=== PATIENT | male | born 1980 | race Caucasian/White ===

== ENCOUNTER 2017-02-12 21:16 | Emergency (ER) | payer MEDICAID ==
[2016-02-11 05:47] VITALS: BMI 48.5
[~2017-02-12 21:16] MED LIST: ATIVAN1 MG PO; CELEXA10 MG PO; CELEXA40 MG PO; COUMADIN5 MG PO; HYDROCODONE-APA1 TAB PO; KLONOPIN0.5 MG PO; OXYCONTIN10 MG PO; OXYCONTIN20 MG PO; PERCOCET 10/3251 TA1 PO
== END 2017-02-12 23:05 | disposition home or self-care (01) ==
LOC: D.ER 21:16
DX: S93.402A Sprain of unspecified ligament of left ankle, initial encounter (principal); W19.XXXA Unspecified fall, initial encounter; Y93.89 Activity, other specified; Y92.89 Other specified places as the place of occurrence of the external cause; S80.02XA Contusion of left knee, initial encounter; F17.200 Nicotine dependence, unspecified, uncomplicated

== ENCOUNTER 2017-02-14 15:55 | Emergency (ER) | payer MEDICAID ==
[2016-02-11 05:47] VITALS: BMI 48.5
== END 2017-02-14 18:53 | disposition left against medical advice (07) ==
LOC: D.ER 15:55
DX: M25.562 Pain in left knee (principal)

== ENCOUNTER → 2017-03-02 08:53 | Outpatient (CLI) | payer MEDICAID ==
[2016-02-11 05:47] VITALS: BMI 48.5
== END ==
LOC: D.MRI 08:53
DX: M25.562 Pain in left knee (principal)

== ENCOUNTER 2017-03-17 08:00 | Outpatient (CLI) | payer MEDICAID ==
[2016-02-11 05:47] VITALS: BMI 48.5
[2017-03-17] MEDS ORDERED: ULTRAM50 MG PO (10:14)
== END 2017-03-17 23:59 | disposition home or self-care (01) ==
LOC: D.PAN 08:00 → D.OPS 03-20 08:45 → EDSTATUS 03-20 11:30 → D.PAN 03-20 11:30
DX: M22.12 Recurrent subluxation of patella, left knee (principal); Z01.810 Encounter for preprocedural cardiovascular examination; Z01.811 Encounter for preprocedural respiratory examination; Z01.812 Encounter for preprocedural laboratory examination; Z53.9 Procedure and treatment not carried out, unspecified reason

== ENCOUNTER 2017-04-17 05:10 | Day surgery (SDC) | payer MEDICAID ==
[2017-04-13 14:54] LABS: APPEARANCE CLEAR (CLEAR); BILIRUBIN NEGATIVE (NEGATIVE); COLOR YELLOW (YELLOW); GLUCOSE NEGATIVE (NEGATIVE); KETONE NEGATIVE (NEGATIVE); LEUKOCYTE ESTERASE NEGATIVE (NEGATIVE); NITRITE NEGATIVE (NEGATIVE); PROTEIN NEGATIVE (NEGATIVE); SPECIFIC GRAVITY 1.005 (1.005-1.020); UROBILINOGEN NORMAL (NORMAL)
[2017-04-13 14:54] LABS: APTT 28.7 SECONDS (22.8-39.4); CALC OSMOLALITY 282 mosm/kg (275-300); CALCIUM 9.4 mg/dL (8.5-10.1); CARBON DIOXIDE 29.2 mmol/L (21.0-32.0); CHLORIDE - SERUM 105 mmol/L (98-107); CREATININE - SERUM 0.9 mg/dL (0.6-1.3); GLUCOSE 89 mg/dL (74-106); INR 0.94 (0.85-1.17); POTASSIUM - SERUM 3.9 mmol/L (3.5-5.1); PROTIME 12.4 SECONDS (11.6-15.0); SODIUM 144 mmol/L (136-145); UREA NITROGEN 4 mg/dL (7-18); eGFR NON AFRICAN AMERICAN > 90 mL/min (90-120)
[2017-04-13 15:10] LABS: BASOPHILS 0.2 % (0-2); EOSINOPHILS 3.4 % (0-7); HEMATOCRIT 41.7 % (42.0-54.0); HEMOGLOBIN 13.9 g/dL (13.5-17.5); IMMATURE GRANULOCYTES 0.3 % (0-5); LYMPHOCYTES 35.3 % (15-50); MCH 29.1 pg (26.0-34.0); MCHC 33.3 g/dL (31.0-37.0); MCV 87.2 fL (80.0-100.0); MEAN PLATELET VOLUME 9.8 fL (7.4-10.4); MONOCYTES 10.5 % (2-11); NEUTROPHILS 50.3 % (40-80); PLATELET COUNT 445 10x3/uL (130-400); RBC 4.78 10x6/uL (4.20-6.10); RDW 13.6 % (11.5-14.5); WBC 11.1 10x3/uL (4.8-10.8)
[~2017-04-17] VITALS: Ht 167.6 cm; Wt 140.6 kg
[~2017-04-17 05:10] MED LIST changes: +ABILIFY10 MG PO; +ULTRAM50 MG PO
[2017-04-17 06:07] VITALS: BP 126/4; Ht 167.6 cm; Wt 140.6 kg
[2017-04-17] MEDS ORDERED: DILAUDID4 MG PO (09:13)
--- NOTE | 2017-04-17 16:43 | NUR ---
1325 DRESSED AWAKE & ALERT. GIVEN DISCHARGE INSTRUCTIONS INCLUDING, MED REC, RX: DILAUDID 2MG, RTC APPT., & [facility] OPS D/C INSTRUCTIONS. PT VOICED UNDERSTANDING. CALL RETURNED FROM DR. MARIE'S OFFICE. STATES PT IS INELIGIBLE FOR ANOTHER WALKER. PT INFORMED. TO PRIVATE CAR PER WHEELCHAIR BY VOLUNTEER. HOME WITH FAMILY. Melissa BANGURA R.N.
== END 2017-04-17 13:25 | disposition home or self-care (01) ==
LOC: D.OPS 05:10 → D.PAN 07:30 → D.OPS 07:30 → D.PAN 11:10 → D.OPS 13:25 → D.PAN 16:45 → D.OPS 16:45
PROVIDERS: Orthopaedic Surgery
DX: M22.2X2 Patellofemoral disorders, left knee (principal); F17.200 Nicotine dependence, unspecified, uncomplicated; K21.9 Gastro-esophageal reflux disease without esophagitis; Z01.812 Encounter for preprocedural laboratory examination

== ENCOUNTER 2017-07-16 07:13 | Emergency (ER) | payer MEDICAID ==
[2017-04-17 06:07] VITALS: BMI 50.1
[~2017-07-16 07:13] MED LIST changes: +DILAUDID4 MG PO
== END 2017-07-16 08:17 | disposition home or self-care (01) ==
LOC: D.ER 07:13
DX: S89.92XA Unspecified injury of left lower leg, initial encounter (principal); W19.XXXA Unspecified fall, initial encounter; Y93.89 Activity, other specified; Y92.029 Unspecified place in mobile home as the place of occurrence of the external cause; F17.200 Nicotine dependence, unspecified, uncomplicated

== ENCOUNTER 2017-09-10 16:05 | Emergency (ER) | payer MEDICAID ==
[2017-04-17 06:07] VITALS: BMI 50.1
== END 2017-09-10 17:04 | disposition home or self-care (01) ==
LOC: D.ER 16:05
DX: M25.462 Effusion, left knee (principal); M17.12 Unilateral primary osteoarthritis, left knee; F17.200 Nicotine dependence, unspecified, uncomplicated

== ENCOUNTER 2017-11-27 18:31 | Emergency (ER) | payer MEDICAID ==
[2017-04-17 06:07] VITALS: BMI 50.1
== END 2017-11-27 23:21 | disposition home or self-care (01) ==
LOC: D.ER 18:31
DX: S93.401A Sprain of unspecified ligament of right ankle, initial encounter (principal); X58.XXXA Exposure to other specified factors, initial encounter; Y93.89 Activity, other specified; Y92.019 Unspecified place in single-family (private) house as the place of occurrence of the external cause

== ENCOUNTER 2017-12-08 18:24 | Emergency (ER) | payer MEDICAID ==
[2017-04-17 06:07] VITALS: BMI 50.1
== END 2017-12-08 21:12 | disposition home or self-care (01) ==
LOC: D.ER 18:24
DX: S83.92XA Sprain of unspecified site of left knee, initial encounter (principal); W19.XXXA Unspecified fall, initial encounter; Y93.89 Activity, other specified; Y92.019 Unspecified place in single-family (private) house as the place of occurrence of the external cause

== ENCOUNTER → 2017-12-14 15:56 | Outpatient (CLI) | payer MEDICAID ==
[2017-04-17 06:07] VITALS: BMI 50.1
[~2017-12-14 15:56] MED LIST changes: +ELIQUIS2.5 MG PO; +KLONOPIN1 MG PO
== END | disposition home or self-care (01) ==
LOC: D.LABREF 15:56
DX: M17.12 Unilateral primary osteoarthritis, left knee (principal); Z11.8 Encounter for screening for other infectious and parasitic diseases

== ENCOUNTER 2017-12-27 10:00 | Inpatient (IN) | payer MEDICAID ==
[~2017-12-27] VITALS: Ht 167.6 cm; Wt 150.0 kg
--- NOTE | ~2017-12-27 | OP ---
PATIENT NAME: RAKEL ALEJANDRA MEDICAL RECORD: [id number] :82 LOCATION:D.MS Cohen2208 ADMISSION DATE:01/01/18 SURGEON: AUDI MARIE MD DATE OF OPERATION: 01/01/2018 PREOPERATIVE DIAGNOSIS: Degenerative arthritis of the left knee. POSTOPERATIVE DIAGNOSIS: Degenerative arthritis of the left knee. PROCEDURE: Left total knee arthroplasty. SURGEON: Audi Marie MD ANESTHESIA: General. INDICATIONS: Rakel Alejandra is an unfortunate 37-year-old gentleman who has had previous total knee arthroplasty on the other side for severe early chondromalacia after multiple joint salvage attempts were made. This knee as well had arthroscopy trochleoplasty and it did gain him several years; however, eventually he had complete delamination of the medial femoral condyle and breakdown and all nonoperative treatments had failed including but not limited to cortisone therapy, physical therapy, bracing, etc. IMPLANTS USED: Anya triathlon total knee arthroplasty system press fit size 7 distal femur, size 6 tibial baseplate, size 9 tibial insert. The patella was not resurfaced. OPERATIVE SUMMARY IN DETAIL: After obtaining the appropriate preoperative orthopedic surgery consent as well as anesthetic consultation, evaluation, and clearance, the patient was brought to the operating room and placed on the operating table in supine position. After adequate general laryngeal mask airway was administered, tourniquet was placed about the patient's left upper extremity. Please note this patient is extremely large with a BMI well in excess of 55. The leg was prepped and draped in routine sterile fashion. The leg was elevated and exsanguinated, and the tourniquet was inflated to 350 mmHg. Immediately upon the incision, it seemed that the tourniquet was not working. It was then inflated to 400 mmHg and it did appear that we only achieved a venous tourniquet given to the patient's large proximal thigh. At this point, the tourniquet was deflated. The case was continued with the tourniquet down. Paramedian arthrotomy was performed. Distal femur was exposed. Soft tissue excision was done in the usual fashion. Intramedullary guide hole was created for intramedullary guided distal femoral cutting. Distal femoral cuts were then followed by complete exposure of the proximal tibia with removal of the menisci. Proximal tibia was cut using intramedullary guidance as well. After appropriate measurements were taken, hao cuts were made for a size 7 press fit distal femur. Trials were put into place corresponding to the above components. Final adjustments were made. Knee was taken through range of motion and found to be stable in all planes. Final distal femoral and proximal tibial preparations were made. The wound was copiously irrigated in pulsatile lavage fashion. Bone ends were dried for the stability, given the tourniquet was down. The tibia was put into place press fit. Polyethylene was snapped into the tray and then the femur was put in pressfit as well. Knee was taken through range of motion and found to be slightly more lax, but the finally and on the medial side for this reason, the medial collateral ligament was imbricated with FiberWire suture. The wound was again copiously irrigated, OPERATIVE REPORT [id number] RAKEL ALEJANDRA dried, and then Vitagel was put into place. Paramedian arthrotomy was closed with #2 Ethibond followed by #1 Vicryl and zipped suture for final closure. This was augmented with a Prevena as this patient is very obese. Having completed this, the patient was awakened and taken to the recovery room in stable condition. All final needle and sponge counts were correct. TRANSINT:[id number] Voice Confirmation ID: [id number] DOCUMENT ID: [id number] CYNTHIA MILLER, AUDI SELF at 1410 CC: [id number] DICTATION DATE: 01/01/18 1032 VENETIAN BLIND MAKER: 01/01/18 1304 [facility] IN [place] [id number] [place] [address]
[2017-12-27 09:35] LABS: BASOPHILS 0.2 % (0-2); EOSINOPHILS 3.3 % (0-7); HEMATOCRIT 44.8 % (42.0-54.0); HEMOGLOBIN 14.6 g/dL (13.5-17.5); IMMATURE GRANULOCYTES 0.2 % (0-5); LYMPHOCYTES 27.6 % (15-50); MCH 28.7 pg (26.0-34.0); MCHC 32.6 g/dL (31.0-37.0); MCV 88.2 fL (80.0-100.0); MEAN PLATELET VOLUME 9.7 fL (7.4-10.4); MONOCYTES 7.6 % (2-11); NEUTROPHILS 61.1 % (40-80); PLATELET COUNT 449 10x3/uL (130-400); RBC 5.08 10x6/uL (4.20-6.10); RDW 13.4 % (11.5-14.5); WBC 12.5 10x3/uL (4.8-10.8)
[2017-12-27 09:41] LABS: APPEARANCE CLEAR (CLEAR); BILIRUBIN NEGATIVE (NEGATIVE); COLOR YELLOW (YELLOW); GLUCOSE NEGATIVE (NEGATIVE); KETONE NEGATIVE (NEGATIVE); NITRITE NEGATIVE (NEGATIVE); PROTEIN NEGATIVE (NEGATIVE); UROBILINOGEN NORMAL (NORMAL)
[2017-12-27 09:43] LABS: CALC OSMOLALITY 281 mosm/kg (275-300); CARBON DIOXIDE 29.8 mmol/L (21.0-32.0); CHLORIDE - SERUM 105 mmol/L (98-107); GLUCOSE 90 mg/dL (74-106); POTASSIUM - SERUM 3.7 mmol/L (3.5-5.1); SODIUM 142 mmol/L (136-145); UREA NITROGEN 10 mg/dL (7-18); eGFR NON AFRICAN AMERICAN 90 mL/min (90-120)
[~2017-12-27 10:00] MED LIST changes: -ELIQUIS2.5 MG PO; -KLONOPIN1 MG PO
[2017-12-27 10:32] LABS: APTT 30.7 SECONDS (22.8-39.4); INR 0.97 (0.85-1.17); PROTIME 12.5 SECONDS (11.6-15.0)
[2018-01-01] MEDS ORDERED: HYDROCODONE-APA1 TAB PO (05:45)
[2018-01-01 05:48] VITALS: BP 140/88; BMI 51.7
[2018-01-01 10:24] VITALS: BP 136/81
[2018-01-01 19:14] VITALS: Ht 167.6 cm; Wt 150.0 kg
[2018-01-01 21:29] VITALS: BP 119/58
[2018-01-02 00:44] VITALS: BP 124/58
[2018-01-02 04:00] VITALS: BP 118/50
[2018-01-02 04:10] LABS: HEMATOCRIT 37.1 % (42.0-54.0); HEMOGLOBIN 11.9 g/dL (13.5-17.5); MCH 28.2 pg (26.0-34.0); MCHC 32.1 g/dL (31.0-37.0); MCV 87.9 fL (80.0-100.0); MEAN PLATELET VOLUME 9.7 fL (7.4-10.4); RBC 4.22 10x6/uL (4.20-6.10); RDW 13.9 % (11.5-14.5); WBC 17.4 10x3/uL (4.8-10.8)
[2018-01-02 08:39] VITALS: BP 131/83
[2018-01-02 13:12] VITALS: BP 142/92
[2018-01-02 16:30] VITALS: BP 160/93
[2018-01-02 22:21] VITALS: BP 121/67
[2018-01-03 01:10] VITALS: BP 124/68
[2018-01-03 04:24] LABS: HEMATOCRIT 34.8 % (42.0-54.0); MCH 28.4 pg (26.0-34.0); MCHC 31.6 g/dL (31.0-37.0); MEAN PLATELET VOLUME 9.7 fL (7.4-10.4); RBC 3.87 10x6/uL (4.20-6.10); RDW 13.8 % (11.5-14.5)
[2018-01-03 04:42] LABS: MCV 89.9 fL (80.0-100.0); WBC 12.8 10x3/uL (4.8-10.8)
[2018-01-03 05:03] VITALS: BP 131/71
[2018-01-03 07:52] VITALS: BP 117/58
[2018-01-03] MEDS ORDERED: ELIQUIS2.5 MG PO (08:29)
[2018-01-03] MEDS ORDERED: PERCOCET 10/3251 TA1 PO (08:30)
== END 2018-01-03 14:16 | disposition home health service (06) | DRG 470 ==
LOC: D.MS 01-01 05:09 → D.SDCHOLD 01-01 05:09 → D.MS 01-01 10:05
PROVIDERS: Orthopaedic Surgery
PROC: 0SRD0JA Replacement of Left Knee Joint with Synthetic Substitute, Uncemented, Open Approach (ICD-10-PCS; principal; 2018-01-01 07:30)
DX: M17.12 Unilateral primary osteoarthritis, left knee (principal); Z68.43 Body mass index [BMI] 50.0-59.9, adult; E66.01 Morbid (severe) obesity due to excess calories; F17.200 Nicotine dependence, unspecified, uncomplicated

== ENCOUNTER → 2018-01-09 14:01 | Outpatient (CLI) | payer MEDICAID ==
[2018-01-01 19:14] VITALS: BMI 53.4
[~2018-01-09 14:01] MED LIST changes: +ELIQUIS2.5 MG PO; +KLONOPIN1 MG PO
== END | disposition home or self-care (01) ==
LOC: D.US 01-08 16:00
DX: R60.0 Localized edema (principal)

== ENCOUNTER 2018-01-18 15:18 | Emergency (ER) | payer MEDICAID ==
[2018-01-01 19:14] VITALS: BMI 53.4
[~2018-01-18 15:18] MED LIST changes: -KLONOPIN1 MG PO
[2018-01-18 16:30] LABS: CALC OSMOLALITY 273 mosm/kg (275-300); CALCIUM 8.5 mg/dL (8.5-10.1); CARBON DIOXIDE 30.9 mmol/L (21.0-32.0); CHLORIDE - SERUM 101 mmol/L (98-107); CREATININE - SERUM 0.8 mg/dL (0.6-1.3); GLUCOSE 94 mg/dL (74-106); POTASSIUM - SERUM 5.9 mmol/L (3.5-5.1); SODIUM 138 mmol/L (136-145); UREA NITROGEN 7 mg/dL (7-18); eGFR NON AFRICAN AMERICAN > 90 mL/min (90-120)
[2018-01-18 16:31] LABS: ALBUMIN 2.5 g/dL (3.4-5.0); ALKALINE PHOSPHATASE 127 U/L (46-116); ALT (SGPT) 42 U/L (10-68); BILIRUBIN - TOTAL 0.46 mg/dL (0.2-1.3)
[2018-01-18 16:43] LABS: BASOPHILS 0.2 % (0-2); EOSINOPHILS 1.5 % (0-7); HEMATOCRIT 36.7 % (42.0-54.0); HEMOGLOBIN 11.6 g/dL (13.5-17.5); IMMATURE GRANULOCYTES 0.6 % (0-5); LYMPHOCYTES 21.8 % (15-50); MCH 27.8 pg (26.0-34.0); MCHC 31.6 g/dL (31.0-37.0); MEAN PLATELET VOLUME 10.4 fL (7.4-10.4); MONOCYTES 11.2 % (2-11); NEUTROPHILS 64.7 % (40-80); PLATELET COUNT 412 10x3/uL (130-400); RBC 4.17 10x6/uL (4.20-6.10); RDW 13.5 % (11.5-14.5); WBC 10.8 10x3/uL (4.8-10.8)
== END 2018-01-18 18:05 | disposition home or self-care (01) ==
LOC: D.ER 15:18
PROVIDERS: Nurse Practitioner Family
DX: G89.18 Other acute postprocedural pain (principal); M25.462 Effusion, left knee

== ENCOUNTER 2018-01-19 18:39 | Inpatient (IN) | payer MEDICAID ==
[~2018-01-19] VITALS: Ht 167.6 cm; Wt 149.7 kg
--- NOTE | ~2018-01-19 | OP ---
PATIENT NAME: RAKEL ROJAS MEDICAL RECORD: [id number] :82 LOCATION:D.MS Cohen2236 ADMISSION DATE:01/19/18 SURGEON: LORIE BERMAN MD DATE OF OPERATION: 01/23/2018 ANESTHESIA: Dr. Real. SURGEON: Lorie Berman MD SEARCH MARKETING COORDINATOR: None. PREOPERATIVE DIAGNOSIS: Infected left total knee replacement. POSTOPERATIVE DIAGNOSIS: Infected left total knee replacement. PROCEDURE PERFORMED: Incision and debridement of left infected total knee with explant of implants. IMPLANTS REMOVED: Were the femoral condylar implant, the poly, and the tibial tray. The patella had not been treated with arthroplasty. Therefore, no hardware was required to be removed from it. Antibiotics were held until cultures were taken from within the knee and then 2 grams of Ancef were provided. The patient is also on standing doses of vancomycin and additional broad-spectrum antibiotics per infectious disease recommendation. A very small pise of bone came out with the tibial tray. This was insignificant. No PCL was visualized after implant removal. BLOOD LOSS: 250 mm. FINDINGS: See body of the report. COMPLICATIONS: None. PATHOLOGY: None. IMPLANTS: None were reimplanted, only explant of implants was performed today. An antibiotic cement spacer was inserted (Vanco and Tobra). DRAINS: None. TOURNIQUET TIME: 2 hours. POSTOP: Stable condition to the recovery room. Needle, sponge and instrument counts were correct. INDICATIONS FOR THE PROCEDURE: The patient is a 37-year-old male who underwent left total knee replacement with replacement of the femur and the tibia only on 01/01/2018. He was admitted to the hospital over the weekend with swelling, fever, elevated white count/CRP/ESR, a swollen knee, and erythema. A tap was performed in the ER and cultures were negative. This was a traumatic tap (bloody); therefore, cell studies such as cell count would have been a moot study to do as the fluid was filled with blood containing red blood cells and white blood cells and would have skewed the results. Gram stain was negative. Despite this, the patient's incision broke down and began to drain through two sinuses. Despite the microbiology studies being negative it was clear that a deep infection had set in OPERATIVE REPORT [id number] RAKEL ROJAS at this point and surgery was indicated. Therefore, the patient was made NPO and today he was taken to the OR for surgical intervention. PROCEDURE IN DETAIL: The patient was brought back to the operating room after a discussion of the recommended procedure. I discussed the risks, benefits, alternatives and complications as well as the initial treatment for the infection; antibiotic spacer, ID consult, probable PICC line, IV antibiotics, and eventual replantation once the infection is cleared. The patient understood that additional cultures will be taken to identify the infectious bacteria, fungus, or AFB and that sensitivities will provide appropriate antibiotic treatment for the condition. His questions were answered and informed consent was obtained. A block was placed by anesthesia in the preop area for post op pain control. The patient was brought back to the operating room, placed supine on the operative Gen. endotracheal anesthesia was provided. The left lower extremity was elevated, prepped, and draped in the usual sterile fashion after a tourniquet had been applied to the proximal left thigh. The leg was then elevated as exsanguination through an infected limb was not recommended and not appropriate. After elevating the leg for 5 minutes, the tourniquet was brought up. The leg was then placed into the knee flexion jacques and an incision was made through the prior anterior knee incision for total knee replacement. This was carried down through subcutaneous tissues down to the quads fascia/patellar tendon, the medial aspect of the knee joint capsule, and patellar tendon. The deep sutures were all removed. At this time the femoral component was removed with a combination of thin flexible osteotomes and the removal device. It was successfully moved en bloc without any loss of bone whatsoever. The tibial tray was then removed using a similar technique with flexible osteotomes and a removal device. Very little bone was removed along with this implant; insignificant (2cm x 2cm). Cultures were taken and 2 grams of Ancef was then provided by anesthesia. . Copious irrigation was carried out followed by antibiotic cement placement. Closure was then performed. The arthrotomy was closed first followed by the subcutaneous tissues. The skin was then closed with Proline. A sterile dressing was placed. The patient was awakened and extubated and brought to recovery room in stable condition. TRANSINT:[id number] Voice Confirmation ID: [id number] DOCUMENT ID: [id number] LORIE BERMAN MD at 4674 CC: [id number] DICTATION DATE: 01/23/18 182 IT COMMUNICATIONS SPECIALIST: 01/23/18 221 ADM IN [place] [id number] [place] [id number]
[2018-01-19 20:47] LABS: BASOPHILS 0.2 % (0-2); EOSINOPHILS 1.4 % (0-7); HEMATOCRIT 34.8 % (42.0-54.0); HEMOGLOBIN 11.2 g/dL (13.5-17.5); IMMATURE GRANULOCYTES 0.2 % (0-5); LYMPHOCYTES 28.6 % (15-50); MCH 27.8 pg (26.0-34.0); MCHC 32.2 g/dL (31.0-37.0); MCV 86.4 fL (80.0-100.0); MEAN PLATELET VOLUME 9.1 fL (7.4-10.4); NEUTROPHILS 59.6 % (40-80); RBC 4.03 10x6/uL (4.20-6.10); RDW 13.5 % (11.5-14.5)
[2018-01-19 20:48] LABS: PLATELET COUNT 641 10x3/uL (130-400)
[2018-01-19 21:03] LABS: ALBUMIN 2.7 g/dL (3.4-5.0); ALKALINE PHOSPHATASE 122 U/L (46-116); ALT (SGPT) 35 U/L (10-68); BILIRUBIN - TOTAL 0.27 mg/dL (0.2-1.3); CALCIUM 8.8 mg/dL (8.5-10.1); CARBON DIOXIDE 27.8 mmol/L (21.0-32.0); CHLORIDE - SERUM 101 mmol/L (98-107); CREATININE - SERUM 0.8 mg/dL (0.6-1.3); GLUCOSE 99 mg/dL (74-106); PROTEIN - SERUM 7.9 g/dL (6.4-8.2); SODIUM 138 mmol/L (136-145); eGFR NON AFRICAN AMERICAN > 90 mL/min (90-120)
[2018-01-19 21:04] LABS: CALC OSMOLALITY 272 mosm/kg (275-300); POTASSIUM - SERUM 3.5 mmol/L (3.5-5.1); UREA NITROGEN 4 mg/dL (7-18)
[2018-01-19 23:59] LABS: ERYTHROCYTE SEDIMENTATION RATE 90 mm/hr (0-15)
[2018-01-20 02:23] VITALS: BP 119/74; Ht 167.6 cm; Wt 149.7 kg
[2018-01-20 04:36] VITALS: BP 110/54
[2018-01-20 09:09] VITALS: BP 106/75
[2018-01-20 12:30] VITALS: BP 123/70
[2018-01-20 15:58] VITALS: BP 106/62
[2018-01-20] MEDS ORDERED: DILAUDID4 MG PO (18:25)
[2018-01-20 20:00] VITALS: BP 116/66
[2018-01-21] VITALS: BP 106/60
[2018-01-21 04:00] VITALS: BP 118/63
[2018-01-21 05:00] LABS: BASOPHILS 0.1 % (0-2); EOSINOPHILS 2.6 % (0-7); HEMATOCRIT 32.5 % (42.0-54.0); HEMOGLOBIN 10.3 g/dL (13.5-17.5); IMMATURE GRANULOCYTES 0.2 % (0-5); LYMPHOCYTES 29.9 % (15-50); MCH 27.2 pg (26.0-34.0); MCHC 31.7 g/dL (31.0-37.0); MEAN PLATELET VOLUME 9.1 fL (7.4-10.4); MONOCYTES 6.7 % (2-11); NEUTROPHILS 60.5 % (40-80); PLATELET COUNT 606 10x3/uL (130-400); RBC 3.78 10x6/uL (4.20-6.10); RDW 13.6 % (11.5-14.5); WBC 9.8 10x3/uL (4.8-10.8)
[2018-01-21 05:40] LABS: ALBUMIN 2.3 g/dL (3.4-5.0); ALKALINE PHOSPHATASE 114 U/L (46-116); ALT (SGPT) 31 U/L (10-68); BILIRUBIN - TOTAL 0.39 mg/dL (0.2-1.3); CALC OSMOLALITY 276 mosm/kg (275-300); CALCIUM 8.7 mg/dL (8.5-10.1); CARBON DIOXIDE 29.4 mmol/L (21.0-32.0); CHLORIDE - SERUM 103 mmol/L (98-107); CREATININE - SERUM 0.9 mg/dL (0.6-1.3); GLUCOSE 91 mg/dL (74-106); PROTEIN - SERUM 7.3 g/dL (6.4-8.2); SODIUM 140 mmol/L (136-145); UREA NITROGEN 6 mg/dL (7-18); eGFR NON AFRICAN AMERICAN > 90 mL/min (90-120)
[2018-01-21 08:57] VITALS: BP 94/56
[2018-01-21 12:22] VITALS: BP 104/56
[2018-01-21 16:39] VITALS: BP 109/57
[2018-01-21 20:00] VITALS: BP 122/71
[2018-01-22] VITALS: BP 119/65
[2018-01-22 04:00] VITALS: BP 107/63
[2018-01-22 06:12] LABS: BASOPHILS 0.1 % (0-2); EOSINOPHILS 4.4 % (0-7); HEMATOCRIT 31.8 % (42.0-54.0); HEMOGLOBIN 10.1 g/dL (13.5-17.5); IMMATURE GRANULOCYTES 0.1 % (0-5); LYMPHOCYTES 36.4 % (15-50); MCH 27.2 pg (26.0-34.0); MCHC 31.8 g/dL (31.0-37.0); MCV 85.5 fL (80.0-100.0); MONOCYTES 8.1 % (2-11); NEUTROPHILS 50.9 % (40-80); PLATELET COUNT 574 10x3/uL (130-400); RBC 3.72 10x6/uL (4.20-6.10); RDW 13.6 % (11.5-14.5); WBC 8.2 10x3/uL (4.8-10.8)
[2018-01-22 07:14] LABS: ALKALINE PHOSPHATASE 106 U/L (46-116); ALT (SGPT) 24 U/L (10-68); BILIRUBIN - TOTAL 0.27 mg/dL (0.2-1.3); CALC OSMOLALITY 275 mosm/kg (275-300); CALCIUM 8.2 mg/dL (8.5-10.1); CARBON DIOXIDE 30.2 mmol/L (21.0-32.0); CHLORIDE - SERUM 105 mmol/L (98-107); CREATININE - SERUM 0.8 mg/dL (0.6-1.3); GLUCOSE 90 mg/dL (74-106); POTASSIUM - SERUM 4.1 mmol/L (3.5-5.1); PROTEIN - SERUM 6.8 g/dL (6.4-8.2); SODIUM 139 mmol/L (136-145); UREA NITROGEN 7 mg/dL (7-18); eGFR NON AFRICAN AMERICAN > 90 mL/min (90-120)
[2018-01-22 08:27] VITALS: BP 107/73
[2018-01-22 12:29] VITALS: BP 106/70
[2018-01-22 16:48] VITALS: BP 135/84
[2018-01-22 18:30] LABS: % SATURATION 13 % (15-55); IRON 24 ug/dl (35-150); TOTAL IRON BIND CAPACITY 184 ug/dl (260-445); UNSAT IRON BIND CAPACITY 160 ug/dl (150-375)
[2018-01-22 20:00] VITALS: BP 119/77
[2018-01-23] VITALS (9 sets, daily range): BP systolic 83–126; BP diastolic 44–74
[2018-01-23 06:04] LABS: BASOPHILS 0.2 % (0-2); EOSINOPHILS 4.6 % (0-7); HEMOGLOBIN 10.4 g/dL (13.5-17.5); IMMATURE GRANULOCYTES 0.1 % (0-5); LYMPHOCYTES 34.4 % (15-50); MCH 27.1 pg (26.0-34.0); MCHC 31.5 g/dL (31.0-37.0); MCV 85.9 fL (80.0-100.0); MEAN PLATELET VOLUME 9.2 fL (7.4-10.4); MONOCYTES 6.6 % (2-11); NEUTROPHILS 54.1 % (40-80); PLATELET COUNT 663 10x3/uL (130-400); RBC 3.84 10x6/uL (4.20-6.10); RDW 13.5 % (11.5-14.5); WBC 9.5 10x3/uL (4.8-10.8)
[2018-01-23 06:33] LABS: ALBUMIN 2.2 g/dL (3.4-5.0); ALKALINE PHOSPHATASE 119 U/L (46-116); ALT (SGPT) 24 U/L (10-68); CALCIUM 8.6 mg/dL (8.5-10.1); CARBON DIOXIDE 29.3 mmol/L (21.0-32.0); CHLORIDE - SERUM 106 mmol/L (98-107); CREATININE - SERUM 0.9 mg/dL (0.6-1.3); GLUCOSE 90 mg/dL (74-106); POTASSIUM - SERUM 4.1 mmol/L (3.5-5.1); PROTEIN - SERUM 6.9 g/dL (6.4-8.2); SODIUM 141 mmol/L (136-145); eGFR NON AFRICAN AMERICAN > 90 mL/min (90-120)
[2018-01-23 06:35] LABS: CALC OSMOLALITY 279 mosm/kg (275-300); UREA NITROGEN 9 mg/dL (7-18)
[2018-01-23 16:41] LABS: BASOPHILS 0.1 % (0-2); HEMATOCRIT 30.5 % (42.0-54.0); HEMOGLOBIN 9.6 g/dL (13.5-17.5); IMMATURE GRANULOCYTES 0.3 % (0-5); LYMPHOCYTES 12.6 % (15-50); MCH 26.9 pg (26.0-34.0); MCHC 31.5 g/dL (31.0-37.0); MCV 85.4 fL (80.0-100.0); MEAN PLATELET VOLUME 9.2 fL (7.4-10.4); MONOCYTES 2.2 % (2-11); NEUTROPHILS 83.8 % (40-80); PLATELET COUNT 644 10x3/uL (130-400); RBC 3.57 10x6/uL (4.20-6.10); RDW 13.3 % (11.5-14.5)
[2018-01-23 16:47] LABS: WBC 14.1 10x3/uL (4.8-10.8)
[2018-01-24 04:00] VITALS: BP 101/68
[2018-01-24 05:34] LABS: BASOPHILS 0.1 % (0-2); EOSINOPHILS 0.1 % (0-7); HEMOGLOBIN 8.3 g/dL (13.5-17.5); IMMATURE GRANULOCYTES 0.3 % (0-5); LYMPHOCYTES 15.1 % (15-50); MCH 27.1 pg (26.0-34.0); MCHC 31.9 g/dL (31.0-37.0); MONOCYTES 6.5 % (2-11); NEUTROPHILS 77.9 % (40-80); PLATELET COUNT 625 10x3/uL (130-400); RBC 3.06 10x6/uL (4.20-6.10); RDW 13.5 % (11.5-14.5)
[2018-01-24 06:52] LABS: ALKALINE PHOSPHATASE 95 U/L (46-116); BILIRUBIN - TOTAL 0.17 mg/dL (0.2-1.3); CALCIUM 7.8 mg/dL (8.5-10.1); CARBON DIOXIDE 27.3 mmol/L (21.0-32.0); CREATININE - SERUM 1.1 mg/dL (0.6-1.3); GLUCOSE 113 mg/dL (74-106); PROTEIN - SERUM 6.1 g/dL (6.4-8.2); UREA NITROGEN 10 mg/dL (7-18); eGFR NON AFRICAN AMERICAN 81 mL/min (90-120)
[2018-01-24 06:53] LABS: ALT (SGPT) 17 U/L (10-68)
[2018-01-24 07:35] LABS: CALC OSMOLALITY 278 mosm/kg (275-300); CHLORIDE - SERUM 103 mmol/L (98-107); POTASSIUM - SERUM 4.3 mmol/L (3.5-5.1); SODIUM 140 mmol/L (136-145)
[2018-01-24 09:30] VITALS: BP 136/76
[2018-01-24 12:25] VITALS: BP 114/68
[2018-01-24 15:25] LABS: FUNGUS STAIN Final report (())
[2018-01-24 17:10] VITALS: BP 120/66
[2018-01-24 20:00] VITALS: BP 115/66
[2018-01-25] VITALS: BP 125/73
[2018-01-25 04:00] VITALS: BP 116/74
[2018-01-25 05:31] LABS: BASOPHILS 0.2 % (0-2); EOSINOPHILS 1.4 % (0-7); IMMATURE GRANULOCYTES 0.4 % (0-5); MCH 26.8 pg (26.0-34.0); MCHC 31.3 g/dL (31.0-37.0); MCV 85.5 fL (80.0-100.0); MEAN PLATELET VOLUME 9.4 fL (7.4-10.4); MONOCYTES 10.3 % (2-11); NEUTROPHILS 53.7 % (40-80); RBC 2.69 10x6/uL (4.20-6.10); RDW 13.9 % (11.5-14.5)
[2018-01-25 05:32] LABS: WBC 10.2 10x3/uL (4.8-10.8)
[2018-01-25 05:33] LABS: HEMOGLOBIN 7.2 g/dL (13.5-17.5); PLATELET COUNT 454 10x3/uL (130-400)
[2018-01-25 05:47] LABS: ALKALINE PHOSPHATASE 97 U/L (46-116); ALT (SGPT) 17 U/L (10-68); CALCIUM 7.8 mg/dL (8.5-10.1); CARBON DIOXIDE 26.4 mmol/L (21.0-32.0); CHLORIDE - SERUM 104 mmol/L (98-107); CREATININE - SERUM 0.9 mg/dL (0.6-1.3); GLUCOSE 113 mg/dL (74-106); POTASSIUM - SERUM 3.7 mmol/L (3.5-5.1); PROTEIN - SERUM 6.1 g/dL (6.4-8.2); SODIUM 138 mmol/L (136-145); eGFR NON AFRICAN AMERICAN > 90 mL/min (90-120)
[2018-01-25 05:48] LABS: CALC OSMOLALITY 274 mosm/kg (275-300); UREA NITROGEN 7 mg/dL (7-18)
[2018-01-25 08:55] VITALS: BP 127/68
[2018-01-25 12:23] VITALS: BP 134/60
[2018-01-25 16:43] VITALS: BP 138/77
[2018-01-25 21:00] VITALS: BP 102/67
[2018-01-26 01:44] VITALS: BP 131/65
[2018-01-26 05:22] VITALS: BP 126/56
[2018-01-26 06:52] LABS: BASOPHILS 0.2 % (0-2); EOSINOPHILS 3.1 % (0-7); HEMOGLOBIN 7.8 g/dL (13.5-17.5); IMMATURE GRANULOCYTES 0.4 % (0-5); MCHC 31.2 g/dL (31.0-37.0); MCV 86.5 fL (80.0-100.0); MEAN PLATELET VOLUME 9.4 fL (7.4-10.4); MONOCYTES 10.1 % (2-11); NEUTROPHILS 48.2 % (40-80); PLATELET COUNT 478 10x3/uL (130-400); RBC 2.89 10x6/uL (4.20-6.10); RDW 13.9 % (11.5-14.5); WBC 9.8 10x3/uL (4.8-10.8)
[2018-01-26 07:13] LABS: CALC OSMOLALITY 271 mosm/kg (275-300); CALCIUM 8.4 mg/dL (8.5-10.1); CARBON DIOXIDE 28.1 mmol/L (21.0-32.0); CHLORIDE - SERUM 103 mmol/L (98-107); CREATININE - SERUM 0.7 mg/dL (0.6-1.3); GLUCOSE 95 mg/dL (74-106); POTASSIUM - SERUM 4.1 mmol/L (3.5-5.1); SODIUM 137 mmol/L (136-145); UREA NITROGEN 6 mg/dL (7-18); eGFR NON AFRICAN AMERICAN > 90 mL/min (90-120)
[2018-01-26 13:10] VITALS: BP 124/73
[2018-01-26 17:11] VITALS: BP 101/64
[2018-01-26 22:50] VITALS: BP 130/60
[2018-01-27 01:20] VITALS: BP 116/52
[2018-01-27 05:24] VITALS: BP 96/52
[2018-01-27 06:37] LABS: BASOPHILS 0.1 % (0-2); EOSINOPHILS 3.7 % (0-7); HEMATOCRIT 24.4 % (42.0-54.0); HEMOGLOBIN 7.6 g/dL (13.5-17.5); IMMATURE GRANULOCYTES 0.4 % (0-5); LYMPHOCYTES 32.6 % (15-50); MCH 26.7 pg (26.0-34.0); MCHC 31.1 g/dL (31.0-37.0); MCV 85.6 fL (80.0-100.0); MEAN PLATELET VOLUME 8.9 fL (7.4-10.4); MONOCYTES 8.9 % (2-11); NEUTROPHILS 54.3 % (40-80); PLATELET COUNT 521 10x3/uL (130-400); RBC 2.85 10x6/uL (4.20-6.10); RDW 13.9 % (11.5-14.5); WBC 9.9 10x3/uL (4.8-10.8)
[2018-01-27 07:25] LABS: CALC OSMOLALITY 275 mosm/kg (275-300); CALCIUM 8.4 mg/dL (8.5-10.1); CARBON DIOXIDE 28.4 mmol/L (21.0-32.0); CHLORIDE - SERUM 103 mmol/L (98-107); CREATININE - SERUM 0.8 mg/dL (0.6-1.3); GLUCOSE 97 mg/dL (74-106); POTASSIUM - SERUM 3.7 mmol/L (3.5-5.1); SODIUM 139 mmol/L (136-145); UREA NITROGEN 7 mg/dL (7-18); eGFR NON AFRICAN AMERICAN > 90 mL/min (90-120)
[2018-01-27 08:23] VITALS: BP 104/56
[2018-01-27 12:33] VITALS: BP 110/55
[2018-01-27 16:19] VITALS: BP 108/63
[2018-01-27 22:58] VITALS: BP 117/72
[2018-01-28 05:32] VITALS: BP 114/64
[2018-01-28 06:31] LABS: CALC OSMOLALITY 276 mosm/kg (275-300); CALCIUM 8.6 mg/dL (8.5-10.1); CARBON DIOXIDE 29.5 mmol/L (21.0-32.0); CHLORIDE - SERUM 104 mmol/L (98-107); CREATININE - SERUM 0.9 mg/dL (0.6-1.3); GLUCOSE 92 mg/dL (74-106); POTASSIUM - SERUM 3.6 mmol/L (3.5-5.1); SODIUM 140 mmol/L (136-145); UREA NITROGEN 6 mg/dL (7-18); eGFR NON AFRICAN AMERICAN > 90 mL/min (90-120)
[2018-01-28 06:32] LABS: BASOPHILS 0.1 % (0-2); EOSINOPHILS 6.3 % (0-7); HEMATOCRIT 24.5 % (42.0-54.0); HEMOGLOBIN 7.6 g/dL (13.5-17.5); IMMATURE GRANULOCYTES 0.3 % (0-5); LYMPHOCYTES 30.5 % (15-50); MCH 26.6 pg (26.0-34.0); MCV 85.7 fL (80.0-100.0); MONOCYTES 9.5 % (2-11); NEUTROPHILS 53.3 % (40-80); PLATELET COUNT 554 10x3/uL (130-400); RBC 2.86 10x6/uL (4.20-6.10); RDW 13.7 % (11.5-14.5); WBC 9.7 10x3/uL (4.8-10.8)
[2018-01-28 08:16] VITALS: BP 107/65
[2018-01-28 12:25] VITALS: BP 118/62
[2018-01-28 15:55] VITALS: BP 130/60
[2018-01-28 21:56] VITALS: BP 101/47
[2018-01-29 01:39] VITALS: BP 102/53
[2018-01-29 06:34] LABS: BASOPHILS 0.1 % (0-2); EOSINOPHILS 6.9 % (0-7); HEMATOCRIT 25.3 % (42.0-54.0); HEMOGLOBIN 7.9 g/dL (13.5-17.5); IMMATURE GRANULOCYTES 0.3 % (0-5); LYMPHOCYTES 30.8 % (15-50); MCH 26.7 pg (26.0-34.0); MCHC 31.2 g/dL (31.0-37.0); MCV 85.5 fL (80.0-100.0); MEAN PLATELET VOLUME 8.7 fL (7.4-10.4); MONOCYTES 7.8 % (2-11); NEUTROPHILS 54.1 % (40-80); PLATELET COUNT 490 10x3/uL (130-400); RBC 2.96 10x6/uL (4.20-6.10); RDW 13.9 % (11.5-14.5); WBC 9.4 10x3/uL (4.8-10.8)
[2018-01-29 06:53] LABS: CALC OSMOLALITY 273 mosm/kg (275-300); CALCIUM 8.4 mg/dL (8.5-10.1); CARBON DIOXIDE 27.1 mmol/L (21.0-32.0); CHLORIDE - SERUM 103 mmol/L (98-107); CREATININE - SERUM 0.9 mg/dL (0.6-1.3); GLUCOSE 107 mg/dL (74-106); POTASSIUM - SERUM 3.7 mmol/L (3.5-5.1); SODIUM 138 mmol/L (136-145); UREA NITROGEN 7 mg/dL (7-18); eGFR NON AFRICAN AMERICAN > 90 mL/min (90-120)
[2018-01-29 09:41] VITALS: BP 113/71
[2018-01-29] MEDS ORDERED: KLONOPIN1 MG PO (11:07)
[2018-01-29] MEDS ORDERED: HYDROCODONE-APA1 TAB PO (11:09)
[2018-01-29] MEDS ORDERED: ELIQUIS2.5 MG PO (11:13)
[2018-01-29 13:12] VITALS: BP 107/67
[2018-02-19 10:12] LABS: FUNGUS MYCOLOGY CULTURE Final report (())
== END 2018-01-29 14:10 | disposition home health service (06) | DRG 464 ==
LOC: D.ER 18:39 → D.MS 23:34 → D.EDHOLD 23:34 → D.MS 23:52
PROVIDERS: Anesthesiology; Family Medicine; Internal Medicine Nephrology; Nurse Practitioner Family; Orthopaedic Surgery Foot and Ankle Surgery; Student in an Organized Health Care Education/Training Program
PROC: 0SPD0JZ Removal of Synthetic Substitute from Left Knee Joint, Open Approach (ICD-10-PCS; principal; 2018-01-23 08:30)
PROC: 0SHD08Z Insertion of Spacer into Left Knee Joint, Open Approach (ICD-10-PCS; 2018-01-23 08:30)
PROC: 02HV33Z Insertion of Infusion Device into Superior Vena Cava, Percutaneous Approach (ICD-10-PCS; 2018-01-26)
PROC: B548ZZA Ultrasonography of Superior Vena Cava, Guidance (ICD-10-PCS; 2018-01-26)
DX: T84.54XA Infection and inflammatory reaction due to internal left knee prosthesis, initial encounter (principal); Z68.43 Body mass index [BMI] 50.0-59.9, adult; T81.31XA Disruption of external operation (surgical) wound, not elsewhere classified, initial encounter; E66.01 Morbid (severe) obesity due to excess calories; F41.8 Other specified anxiety disorders; D64.9 Anemia, unspecified; R79.82 Elevated C-reactive protein (CRP); M19.90 Unspecified osteoarthritis, unspecified site

== ENCOUNTER → 2018-02-05 09:59 | Outpatient (CLI) | payer MEDICAID ==
[2018-01-20 02:23] VITALS: BMI 53.4
[~2018-02-05 09:59] MED LIST changes: +KLONOPIN1 MG PO
[2018-02-05 20:11] LABS: BASOPHILS 0.2 % (0-2); EOSINOPHILS 2.1 % (0-7); HEMATOCRIT 30.6 % (42.0-54.0); HEMOGLOBIN 9.4 g/dL (13.5-17.5); IMMATURE GRANULOCYTES 0.2 % (0-5); LYMPHOCYTES 28.8 % (15-50); MCH 26.7 pg (26.0-34.0); MCHC 30.7 g/dL (31.0-37.0); MCV 86.9 fL (80.0-100.0); MEAN PLATELET VOLUME 9.5 fL (7.4-10.4); MONOCYTES 11.4 % (2-11); NEUTROPHILS 57.3 % (40-80); PLATELET COUNT 582 10x3/uL (130-400); RBC 3.52 10x6/uL (4.20-6.10); RDW 14.7 % (11.5-14.5); WBC 10.3 10x3/uL (4.8-10.8)
[2018-02-05 20:22] LABS: ALKALINE PHOSPHATASE 142 U/L (46-116); ALT (SGPT) 46 U/L (10-68); C-REACTIVE PROTEIN 3.2 mg/dL (0.0-0.9); CALC OSMOLALITY 279 mosm/kg (275-300); CARBON DIOXIDE 25.4 mmol/L (21.0-32.0); CHLORIDE - SERUM 102 mmol/L (98-107); CREATININE - SERUM 1.1 mg/dL (0.6-1.3); POTASSIUM - SERUM 4.2 mmol/L (3.5-5.1); PROTEIN - SERUM 7.6 g/dL (6.4-8.2); SODIUM 142 mmol/L (136-145); UREA NITROGEN 10 mg/dL (7-18); eGFR NON AFRICAN AMERICAN 81 mL/min (90-120)
[2018-02-05 20:28] LABS: GLUCOSE 54 mg/dL (74-106)
[2018-02-05 21:47] LABS: ERYTHROCYTE SEDIMENTATION RATE 47 mm/hr (0-15)
== END | disposition home or self-care (01) ==
LOC: D.LABREF 09:59
PROVIDERS: Student in an Organized Health Care Education/Training Program
DX: T84.54XA Infection and inflammatory reaction due to internal left knee prosthesis, initial encounter (principal); Z51.81 Encounter for therapeutic drug level monitoring; Z79.2 Long term (current) use of antibiotics

== ENCOUNTER 2018-02-06 15:03 | Emergency (ER) | payer MEDICAID ==
[2018-01-20 02:23] VITALS: BMI 53.4
[2018-02-06 18:17] LABS: BASOPHILS 0.3 % (0-2); EOSINOPHILS 2.5 % (0-7); HEMATOCRIT 30.4 % (42.0-54.0); HEMOGLOBIN 9.4 g/dL (13.5-17.5); IMMATURE GRANULOCYTES 0.4 % (0-5); LYMPHOCYTES 28.3 % (15-50); MCHC 30.9 g/dL (31.0-37.0); MEAN PLATELET VOLUME 9.5 fL (7.4-10.4); MONOCYTES 8.6 % (2-11); NEUTROPHILS 59.9 % (40-80); PLATELET COUNT 480 10x3/uL (130-400); RBC 3.61 10x6/uL (4.20-6.10); RDW 14.4 % (11.5-14.5); WBC 11.9 10x3/uL (4.8-10.8)
[2018-02-06 18:29] LABS: INR 1.1 (0.85-1.17); PROTIME 13.8 SECONDS (11.6-15.0)
[2018-02-06 18:30] LABS: MCV 84.2 fL (80.0-100.0)
[2018-02-06 19:21] LABS: ALBUMIN 2.9 g/dL (3.4-5.0); ALKALINE PHOSPHATASE 131 U/L (46-116); ALT (SGPT) 40 U/L (10-68); CALCIUM 9.2 mg/dL (8.5-10.1); CARBON DIOXIDE 27.7 mmol/L (21.0-32.0); CHLORIDE - SERUM 103 mmol/L (98-107); CREATININE - SERUM 0.9 mg/dL (0.6-1.3); POTASSIUM - SERUM 3.7 mmol/L (3.5-5.1); PROTEIN - SERUM 7.5 g/dL (6.4-8.2); SODIUM 140 mmol/L (136-145); eGFR NON AFRICAN AMERICAN > 90 mL/min (90-120)
[2018-02-06 19:24] LABS: CALC OSMOLALITY 275 mosm/kg (275-300); GLUCOSE 87 mg/dL (74-106); UREA NITROGEN 7 mg/dL (7-18)
[2018-02-06 19:29] LABS: CREATINE KINASE 97 UL (21-232); MAGNESIUM - SERUM 2.2 mg/dL (1.8-2.4); PRO BNP 106 pg/mL (0-125)
== END 2018-02-06 20:10 | disposition home or self-care (01) ==
LOC: D.ER 15:03
PROVIDERS: Nurse Practitioner Family
DX: G89.18 Other acute postprocedural pain (principal)

== ENCOUNTER 2018-02-08 08:16 | Inpatient (IN) | payer MEDICAID ==
[~2018-02-08] VITALS: Ht 167.6 cm; Wt 145.5 kg
--- NOTE | ~2018-02-08 | OP ---
PATIENT NAME: RAKEL ALEJANDRA MEDICAL RECORD: [id number] :82 LOCATION:D.MS Cohen2226 ADMISSION DATE:02/08/18 SURGEON: AUDI MARIE MD DATE OF OPERATION: 02/11/2018 PREOPERATIVE DIAGNOSIS: Infected left knee, status post placement of a cement spacer. POSTOPERATIVE DIAGNOSIS: Infected left knee, status post placement of a cement spacer. PROCEDURES: 1. Excisional debridement of the left knee; skin, subcutaneous tissue, portions of fat, fascia, muscle, and bone, 130 cm in aggregate to include skin, subcutaneous tissue, portions of fat, fascia, muscle, and bone less than that. 2. Placement of antibiotic cement spacer. SURGEON: Audi Marie MD ANESTHESIA: General. INTRAOPERATIVE COMPLICATIONS: None. SUMMARY OF PATHOLOGIC FINDINGS: The patient's infection seemed to be more prepatellar. Cultures were taken from both planes. The prepatellar bursa and then one in the deep aspect of the joint after the cement spacer was removed. INDICATIONS: Rakel Alejandra is a 37-year-old gentleman who has had a long history of bilateral knee problems, culminating in bilateral total knee arthroplasty at separate times, the most recent of which unfortunately became infected. It was removed and a cement spacer was put in place by Dr. Berman. The patient presented to the hospital on 02/08/2018 with recurrent fever. The decision was then made after sed rate and C-reactive protein began to rise from where it had been prior. Decision was made to repeat the I&D, replace the cement spacer. The patient has a Prevena dressing and a deep drain. OPERATIVE SUMMARY IN DETAIL: After obtaining the appropriate orthopedic surgery consent as well as anesthetic consultation, evaluation and clearance, the patient was brought to the operating room and placed on the operating table in supine position. After adequate general laryngeal mask was administered, tourniquet was placed in the proximal aspect of left lower extremity. Left lower extremity was then prepped and draped in routine sterile fashion. The leg was elevated. The tourniquet was deflated without exsanguination because of the risk of infection spread. Incision was made over the preoperative incision line and taken down for paramedian arthrotomy. However, before the paramedian arthrotomy was performed, cultures were taken in the superficial prepatellar space. Paramedian arthrotomy was then performed. The previously placed cement spacer was removed. Cultures were taken from deep. Approximately 6 liters of normal saline was irrigated in pulsatile fashion. A combination of curettes and rongeurs were used for the debridement. The bone was scraped with a curette on all surfaces and final debridement was then finished. A vancomycin cement laden spacer was placed in the wound while in the doughy capacity and molded into the joint space with the knee in a proper alignment. Having completed this, a 19-[place] Hemovac drain was placed. The paramedian arthrotomy was closed with a combination of #2 Ethibond and #5 Ethibond in [id number] fashion. The OPERATIVE REPORT [id number] RAKEL ALEJANDRA superficial layer was closed with a #1 Vicryl. This was followed by 2-0 Prolene in horizontal mattress fashion. Having completed this, a Prevena was placed over the wound. The drain was hooked up to the Hemovac. Further sterile dressings were applied. Tourniquet was deflated. The patient was awakened, taken to recovery room in stable condition. All final needle and sponge counts were correct. TRANSINT:[id number] Voice Confirmation ID: [id number] DOCUMENT ID: [id number] AUDI MARIE MD at 0949 CC: [id number] DICTATION DATE: 02/11/18 1045 MANAGER POWER: 02/11/18 1155 ADM IN [facility] [address] [place] [address]
[2018-02-08 09:13] LABS: APPEARANCE CLEAR (CLEAR); BILIRUBIN NEGATIVE (NEGATIVE); COLOR YELLOW (YELLOW); GLUCOSE NEGATIVE (NEGATIVE); KETONE NEGATIVE (NEGATIVE); NITRITE NEGATIVE (NEGATIVE); PROTEIN NEGATIVE (NEGATIVE); SPECIFIC GRAVITY 1.005 (1.005-1.020); UROBILINOGEN NORMAL (NORMAL)
[2018-02-08 10:28] LABS: BASOPHILS 0.2 % (0-2); EOSINOPHILS 2.9 % (0-7); HEMATOCRIT 29.8 % (42.0-54.0); HEMOGLOBIN 9.2 g/dL (13.5-17.5); IMMATURE GRANULOCYTES 0.3 % (0-5); LYMPHOCYTES 29.6 % (15-50); MCH 25.6 pg (26.0-34.0); MCHC 30.9 g/dL (31.0-37.0); MEAN PLATELET VOLUME 9.3 fL (7.4-10.4); MONOCYTES 7.3 % (2-11); NEUTROPHILS 59.7 % (40-80); PLATELET COUNT 555 10x3/uL (130-400); RBC 3.59 10x6/uL (4.20-6.10); RDW 14.5 % (11.5-14.5); WBC 10.7 10x3/uL (4.8-10.8)
[2018-02-08 10:43] LABS: ALBUMIN 2.8 g/dL (3.4-5.0); ALKALINE PHOSPHATASE 128 U/L (46-116); ALT (SGPT) 34 U/L (10-68); BILIRUBIN - TOTAL 0.25 mg/dL (0.2-1.3); CALC OSMOLALITY 269 mosm/kg (275-300); CALCIUM 9.3 mg/dL (8.5-10.1); CARBON DIOXIDE 27.9 mmol/L (21.0-32.0); CHLORIDE - SERUM 102 mmol/L (98-107); CREATININE - SERUM 0.9 mg/dL (0.6-1.3); GLUCOSE 93 mg/dL (74-106); POTASSIUM - SERUM 3.4 mmol/L (3.5-5.1); PROTEIN - SERUM 7.7 g/dL (6.4-8.2); SODIUM 136 mmol/L (136-145); UREA NITROGEN 7 mg/dL (7-18); eGFR NON AFRICAN AMERICAN > 90 mL/min (90-120)
[2018-02-08 16:46] VITALS: BP 150/104; BMI 51.7
[2018-02-08 17:24] LABS: ERYTHROCYTE SEDIMENTATION RATE 79 mm/hr (0-15)
[2018-02-08 20:00] VITALS: BP 129/86
[2018-02-09] VITALS (7 sets, daily range): BP systolic 119–139; BP diastolic 70–91; Ht 167.6 cm; Wt 145.5 kg
[2018-02-09 06:22] LABS: BASOPHILS 0.3 % (0-2); EOSINOPHILS 3.7 % (0-7); HEMATOCRIT 25.8 % (42.0-54.0); HEMOGLOBIN 7.8 g/dL (13.5-17.5); IMMATURE GRANULOCYTES 0.1 % (0-5); LYMPHOCYTES 36.5 % (15-50); MCH 25.2 pg (26.0-34.0); MCHC 30.2 g/dL (31.0-37.0); MCV 83.2 fL (80.0-100.0); MEAN PLATELET VOLUME 9.8 fL (7.4-10.4); MONOCYTES 9.7 % (2-11); NEUTROPHILS 49.7 % (40-80); RDW 14.6 % (11.5-14.5)
[2018-02-09 06:25] LABS: PLATELET COUNT 418 10x3/uL (130-400); WBC 7.9 10x3/uL (4.8-10.8)
[2018-02-09 06:41] LABS: ALBUMIN 2.4 g/dL (3.4-5.0); ALKALINE PHOSPHATASE 115 U/L (46-116); ALT (SGPT) 29 U/L (10-68); C-REACTIVE PROTEIN 5.6 mg/dL (0.0-0.9); CALC OSMOLALITY 264 mosm/kg (275-300); CALCIUM 8.2 mg/dL (8.5-10.1); CARBON DIOXIDE 26.3 mmol/L (21.0-32.0); CHLORIDE - SERUM 100 mmol/L (98-107); CREATININE - SERUM 0.7 mg/dL (0.6-1.3); GLUCOSE 83 mg/dL (74-106); POTASSIUM - SERUM 3.6 mmol/L (3.5-5.1); PROTEIN - SERUM 6.1 g/dL (6.4-8.2); SODIUM 134 mmol/L (136-145); UREA NITROGEN 8 mg/dL (7-18); eGFR NON AFRICAN AMERICAN > 90 mL/min (90-120)
[2018-02-10 04:01] VITALS: BP 130/71
[2018-02-10 08:31] VITALS: BP 144/74
[2018-02-10 11:02] LABS: HEMATOCRIT 32.1 % (42.0-54.0); HEMOGLOBIN 10.1 g/dL (13.5-17.5)
[2018-02-10 12:06] VITALS: BP 144/78
[2018-02-10 12:32] VITALS: BP 126/77
[2018-02-10 16:13] VITALS: BP 130/74
[2018-02-10 22:35] VITALS: BP 123/60
[2018-02-11 04:57] LABS: HEMATOCRIT 32.1 % (42.0-54.0); HEMOGLOBIN 9.9 g/dL (13.5-17.5); MCH 25.5 pg (26.0-34.0); MCHC 30.8 g/dL (31.0-37.0); MCV 82.7 fL (80.0-100.0); MEAN PLATELET VOLUME 9.2 fL (7.4-10.4); PLATELET COUNT 434 10x3/uL (130-400); RDW 14.6 % (11.5-14.5); WBC 8.5 10x3/uL (4.8-10.8)
[2018-02-11 05:01] LABS: RBC 3.88 10x6/uL (4.20-6.10)
[2018-02-11 05:07] LABS: CHLORIDE - SERUM 103 mmol/L (98-107)
[2018-02-11 05:08] LABS: C-REACTIVE PROTEIN 7.3 mg/dL (0.0-0.9); CALC OSMOLALITY 272 mosm/kg (275-300); CALCIUM 8.8 mg/dL (8.5-10.1); CARBON DIOXIDE 28.8 mmol/L (21.0-32.0); GLUCOSE 88 mg/dL (74-106); SODIUM 138 mmol/L (136-145); UREA NITROGEN 8 mg/dL (7-18)
[2018-02-11 05:14] LABS: CREATININE - SERUM 0.9 mg/dL (0.6-1.3); POTASSIUM - SERUM 4.3 mmol/L (3.5-5.1); eGFR NON AFRICAN AMERICAN > 90 mL/min (90-120)
[2018-02-11 05:29] LABS: ERYTHROCYTE SEDIMENTATION RATE 18 mm/hr (0-15)
[2018-02-11 07:10] VITALS: BP 135/50
[2018-02-11 11:31] VITALS: BP 112/74
[2018-02-11 16:42] VITALS: BP 138/94
[2018-02-11 20:43] VITALS: BP 118/66
[2018-02-12 00:10] VITALS: BP 113/72
[2018-02-12 05:12] VITALS: BP 120/68
[2018-02-12 06:09] LABS: BASOPHILS 0.1 % (0-2); EOSINOPHILS 2.4 % (0-7); IMMATURE GRANULOCYTES 0.1 % (0-5); LYMPHOCYTES 22.9 % (15-50); MCH 26.1 pg (26.0-34.0); MCV 81.6 fL (80.0-100.0); MEAN PLATELET VOLUME 9.2 fL (7.4-10.4); MONOCYTES 10.7 % (2-11); NEUTROPHILS 63.8 % (40-80); PLATELET COUNT 401 10x3/uL (130-400); RDW 14.6 % (11.5-14.5)
[2018-02-12 06:14] LABS: HEMATOCRIT 24.4 % (42.0-54.0); HEMOGLOBIN 7.8 g/dL (13.5-17.5); RBC 2.99 10x6/uL (4.20-6.10); WBC 10.7 10x3/uL (4.8-10.8)
[2018-02-12 06:31] LABS: ALBUMIN 2.3 g/dL (3.4-5.0); ALKALINE PHOSPHATASE 130 U/L (46-116); ALT (SGPT) 23 U/L (10-68); BILIRUBIN - TOTAL 0.26 mg/dL (0.2-1.3); C-REACTIVE PROTEIN 7.7 mg/dL (0.0-0.9); CALC OSMOLALITY 265 mosm/kg (275-300); CALCIUM 8.2 mg/dL (8.5-10.1); CARBON DIOXIDE 29.1 mmol/L (21.0-32.0); CHLORIDE - SERUM 99 mmol/L (98-107); CREATININE - SERUM 0.8 mg/dL (0.6-1.3); GLUCOSE 101 mg/dL (74-106); POTASSIUM - SERUM 4.3 mmol/L (3.5-5.1); PROTEIN - SERUM 5.9 g/dL (6.4-8.2); SODIUM 134 mmol/L (136-145); UREA NITROGEN 7 mg/dL (7-18); eGFR NON AFRICAN AMERICAN > 90 mL/min (90-120)
[2018-02-12 07:18] LABS: ERYTHROCYTE SEDIMENTATION RATE 60 mm/hr (0-15)
[2018-02-12 09:49] VITALS: BP 140/83
[2018-02-12 14:56] VITALS: BP 134/77
[2018-02-12 17:32] VITALS: BP 142/80
[2018-02-12 20:00] VITALS: BP 137/67
[2018-02-13 04:00] VITALS: BP 129/78
[2018-02-13 08:51] VITALS: BP 147/82
[2018-02-13 12:01] VITALS: BP 131/76
[2018-02-13 12:55] LABS: HEMATOCRIT 27.3 % (42.0-54.0); HEMOGLOBIN 8.6 g/dL (13.5-17.5); MCH 26.1 pg (26.0-34.0); MCHC 31.5 g/dL (31.0-37.0); MEAN PLATELET VOLUME 9.7 fL (7.4-10.4); RBC 3.29 10x6/uL (4.20-6.10); RDW 14.3 % (11.5-14.5); WBC 10.6 10x3/uL (4.8-10.8)
[2018-02-13 16:04] VITALS: BP 137/84
[2018-02-13 20:00] VITALS: BP 144/82
[2018-02-14 05:37] LABS: BASOPHILS 0.1 % (0-2); EOSINOPHILS 4.6 % (0-7); HEMATOCRIT 23.6 % (42.0-54.0); HEMOGLOBIN 7.5 g/dL (13.5-17.5); IMMATURE GRANULOCYTES 0.1 % (0-5); LYMPHOCYTES 18.7 % (15-50); MCHC 31.8 g/dL (31.0-37.0); MCV 81.9 fL (80.0-100.0); MONOCYTES 10.9 % (2-11); NEUTROPHILS 65.6 % (40-80); PLATELET COUNT 350 10x3/uL (130-400); RBC 2.88 10x6/uL (4.20-6.10); RDW 14.1 % (11.5-14.5); WBC 10.1 10x3/uL (4.8-10.8)
[2018-02-14 05:55] LABS: CALC OSMOLALITY 263 mosm/kg (275-300); CALCIUM 7.7 mg/dL (8.5-10.1); CARBON DIOXIDE 27.2 mmol/L (21.0-32.0); CHLORIDE - SERUM 100 mmol/L (98-107); CREATININE - SERUM 0.7 mg/dL (0.6-1.3); GLUCOSE 91 mg/dL (74-106); SODIUM 133 mmol/L (136-145); UREA NITROGEN 6 mg/dL (7-18); eGFR NON AFRICAN AMERICAN > 90 mL/min (90-120)
[2018-02-14 05:57] LABS: POTASSIUM - SERUM 3.2 mmol/L (3.5-5.1)
[2018-02-14 06:17] VITALS: BP 142/82
[2018-02-14 12:14] VITALS: BP 114/67
[2018-02-14 15:51] VITALS: BP 140/70
[2018-02-14 19:58] VITALS: BP 133/67
[2018-02-15 02:00] VITALS: BP 138/68
[2018-02-15 03:56] VITALS: BP 121/67
[2018-02-15 06:29] LABS: CALC OSMOLALITY 271 mosm/kg (275-300); CALCIUM 8.8 mg/dL (8.5-10.1); CARBON DIOXIDE 27.2 mmol/L (21.0-32.0); CHLORIDE - SERUM 101 mmol/L (98-107); GLUCOSE 101 mg/dL (74-106); SODIUM 137 mmol/L (136-145); UREA NITROGEN 6 mg/dL (7-18)
[2018-02-15 06:33] LABS: CREATININE - SERUM 0.9 mg/dL (0.6-1.3); POTASSIUM - SERUM 3.7 mmol/L (3.5-5.1); eGFR NON AFRICAN AMERICAN > 90 mL/min (90-120)
[2018-02-15 06:43] LABS: MCHC 32.6 g/dL (31.0-37.0); MEAN PLATELET VOLUME 9.8 fL (7.4-10.4); RDW 14.5 % (11.5-14.5); WBC 11.4 10x3/uL (4.8-10.8)
[2018-02-15 06:44] LABS: HEMATOCRIT 29.8 % (42.0-54.0); HEMOGLOBIN 9.7 g/dL (13.5-17.5); RBC 3.59 10x6/uL (4.20-6.10)
[2018-02-15 09:02] VITALS: BP 127/77
[2018-02-15] MEDS ORDERED: DILAUDID4 MG PO (11:10)
[2018-02-15 13:57] VITALS: BP 130/73
== END 2018-02-15 17:10 | disposition home health service (06) | DRG 498 ==
LOC: D.ER 08:16 → D.MS 15:01 → D.EDHOLD 15:01 → D.MS 15:27
PROVIDERS: Emergency Medicine; Orthopaedic Surgery; Student in an Organized Health Care Education/Training Program
PROC: 0SHD08Z Insertion of Spacer into Left Knee Joint, Open Approach (ICD-10-PCS; 2018-02-11)
PROC: 0QBC0ZZ Excision of Left Lower Femur, Open Approach (ICD-10-PCS; principal; 2018-02-11 09:30)
PROC: 0SPD08Z Removal of Spacer from Left Knee Joint, Open Approach (ICD-10-PCS; 2018-02-11 09:30)
DX: T84.54XA Infection and inflammatory reaction due to internal left knee prosthesis, initial encounter (principal); Z68.43 Body mass index [BMI] 50.0-59.9, adult; F17.203 Nicotine dependence unspecified, with withdrawal; R79.82 Elevated C-reactive protein (CRP); B95.7 Other staphylococcus as the cause of diseases classified elsewhere; E66.01 Morbid (severe) obesity due to excess calories

== ENCOUNTER 2018-02-25 16:14 | Emergency (ER) | payer MEDICAID ==
[2018-02-09 19:55] VITALS: BMI 51.7
[2018-02-25 18:41] LABS: BASOPHILS 0.1 % (0-2); EOSINOPHILS 2.4 % (0-7); IMMATURE GRANULOCYTES 0.2 % (0-5); LYMPHOCYTES 31.6 % (15-50); MCH 26.4 pg (26.0-34.0); MCHC 32.4 g/dL (31.0-37.0); MCV 81.5 fL (80.0-100.0); MONOCYTES 7.1 % (2-11); NEUTROPHILS 58.6 % (40-80); RBC 4.17 10x6/uL (4.20-6.10); RDW 16.1 % (11.5-14.5); WBC 11.1 10x3/uL (4.8-10.8)
[2018-02-25 18:42] LABS: PLATELET COUNT 637 10x3/uL (130-400)
== END 2018-02-25 19:34 | disposition home or self-care (01) ==
LOC: D.ER 16:14
PROVIDERS: Nurse Practitioner Family
DX: G89.18 Other acute postprocedural pain (principal); M25.562 Pain in left knee

== ENCOUNTER 2018-03-21 20:53 | Inpatient (IN) | payer MEDICAID ==
[~2018-03-21] VITALS: Ht 167.6 cm; Wt 104.5 kg
--- NOTE | ~2018-03-21 | OP ---
PATIENT NAME: RAKEL ROJAS MEDICAL RECORD: [id number] :82 LOCATION:D.MS Cohen2222 ADMISSION DATE:03/21/18 SURGEON: AUDI MARIE MD DATE OF OPERATION: 03/26/2018 PREOPERATIVE DIAGNOSIS: Infected left knee status post cement spacer placement. POSTOPERATIVE DIAGNOSIS: Infected left knee status post cement spacer placement. PROCEDURE: I&D with cement spacer exchange of the left knee. SURGEON: Audi Maire MD ANESTHESIA: General. INTRAOPERATIVE COMPLICATIONS: None. SUMMARY OF PATHOLOGIC FINDINGS: While the patient's wound bed looked fairly good after the cement was removed, there was area of what I felt like was very suspicious for purulence. This was immediately sent for stat Gram stain, although no organisms were seen I felt like the area was not entirely infection free. Therefore, the cement spacer was exchanged. OPERATIVE SUMMARY IN DETAIL: After obtaining the appropriate preoperative orthopedic surgery consents as well as anesthetic consultation, evaluation, and clearance, the patient was brought to the operating room and placed on the operating table in supine position. After general laryngeal mask administered, tourniquet was placed on the proximal aspect of left lower extremity. Left lower extremity was then prepped and draped in routine sterile fashion. The leg was elevated and exsanguinated, tourniquet was inflated to 350 mmHg. Midline incision from the previous multiple surgeries were taken down. Paramedian arthrotomy was performed. At this point, the cement spacer was grasped and taken out in its entirety in a solid block. The visual inspection as above was noted. Fluid from the very back part of the deep recess of the knee was then submitted for culture sample for aerobic, anaerobic, and Gram stain test. Having completed this, a large curette along with rongeurs and scalpel excision was required of all portions of the tissue including skin, subcutaneous tissue, portions of fat, fascia, muscle, and bone. When it was felt that the wound had been irrigated substantially, a vancomycin-laden cement spacer was placed in the space to maintain aperture for total knee arthroplasty in the future. Paramedian arthrotomy was closed with #2 Vicryl, was followed by 0 Vicryl, 2-0 Vicryl and skin patti. A Prevena style dressing was placed given this person's morbid obesity to brake operator helper with wound healing. Tourniquet was deflated. The patient was awakened and taken to the recovery room in stable condition. All final needle and sponge counts were correct. TRANSINT:[id number] Voice Confirmation ID: [id number] DOCUMENT ID: [id number] OPERATIVE REPORT [id number] RAKEL ROJAS MD, AUDI SELF at 1329 CC: [id number] DICTATION DATE: 03/26/182104 CORPORATE TAX PREPARER: 03/26/182225 ADM IN [place] [id number] [place] [address]
[2018-03-21 21:45] LABS: BASOPHILS 0.1 % (0-2); EOSINOPHILS 1.4 % (0-7); HEMATOCRIT 35.4 % (42.0-54.0); HEMOGLOBIN 11.4 g/dL (13.5-17.5); IMMATURE GRANULOCYTES 0.1 % (0-5); LYMPHOCYTES 27.9 % (15-50); MCH 24.8 pg (26.0-34.0); MCHC 32.2 g/dL (31.0-37.0); MEAN PLATELET VOLUME 8.7 fL (7.4-10.4); MONOCYTES 8.9 % (2-11); NEUTROPHILS 61.6 % (40-80); PLATELET COUNT 619 10x3/uL (130-400); WBC 13.3 10x3/uL (4.8-10.8)
[2018-03-21 22:19] LABS: ALBUMIN 2.9 g/dL (3.4-5.0); ALKALINE PHOSPHATASE 108 U/L (46-116); ALT (SGPT) 16 U/L (10-68); BILIRUBIN - TOTAL 0.21 mg/dL (0.2-1.3); C-REACTIVE PROTEIN 12.3 mg/dL (0.0-0.9); CALC OSMOLALITY 273 mosm/kg (275-300); CALCIUM 9.2 mg/dL (8.5-10.1); CARBON DIOXIDE 30.5 mmol/L (21.0-32.0); CHLORIDE - SERUM 101 mmol/L (98-107); CREATININE - SERUM 0.9 mg/dL (0.6-1.3); GLUCOSE 109 mg/dL (74-106); POTASSIUM - SERUM 3.1 mmol/L (3.5-5.1); PROTEIN - SERUM 8.6 g/dL (6.4-8.2); SODIUM 138 mmol/L (136-145); UREA NITROGEN 4 mg/dL (7-18); eGFR NON AFRICAN AMERICAN > 90 mL/min (90-120)
[2018-03-21 22:36] LABS: APPEARANCE CLEAR (CLEAR); BILIRUBIN NEGATIVE (NEGATIVE); COLOR YELLOW (YELLOW); GLUCOSE NEGATIVE (NEGATIVE); KETONE NEGATIVE (NEGATIVE); NITRITE NEGATIVE (NEGATIVE); PROTEIN NEGATIVE (NEGATIVE); UROBILINOGEN NORMAL (NORMAL)
[2018-03-21 23:09] LABS: ERYTHROCYTE SEDIMENTATION RATE 61 mm/hr (0-15)
[2018-03-22 00:37] VITALS: BP 150/92; BMI 37.2
[2018-03-22 04:39] VITALS: BP 164/84
[2018-03-22 08:06] VITALS: BP 137/92
[2018-03-22 12:36] VITALS: Ht 167.6 cm; Wt 104.5 kg
[2018-03-22 13:26] LABS: PROTEIN - BODY FLUID 0.3 G/DL
[2018-03-22 14:07] LABS: EOS BF 1 %; MACROPHAGES BF 4 %; NEUT - BF 89 %
[2018-03-22 15:27] VITALS: BP 145/91
[2018-03-22 22:09] VITALS: BP 159/83
[2018-03-23 04:46] LABS: BASOPHILS 0.1 % (0-2); EOSINOPHILS 2.5 % (0-7); HEMATOCRIT 32.7 % (42.0-54.0); HEMOGLOBIN 10.1 g/dL (13.5-17.5); IMMATURE GRANULOCYTES 0.3 % (0-5); LYMPHOCYTES 24.9 % (15-50); MCH 23.8 pg (26.0-34.0); MCHC 30.9 g/dL (31.0-37.0); MCV 77.1 fL (80.0-100.0); MEAN PLATELET VOLUME 9.3 fL (7.4-10.4); MONOCYTES 8.9 % (2-11); NEUTROPHILS 63.3 % (40-80); PLATELET COUNT 589 10x3/uL (130-400); RBC 4.24 10x6/uL (4.20-6.10); RDW 16.9 % (11.5-14.5); WBC 10.2 10x3/uL (4.8-10.8)
[2018-03-23 04:55] VITALS: BP 141/84
[2018-03-23 05:06] LABS: CALC OSMOLALITY 272 mosm/kg (275-300); CALCIUM 8.9 mg/dL (8.5-10.1); CARBON DIOXIDE 28.8 mmol/L (21.0-32.0); CHLORIDE - SERUM 102 mmol/L (98-107); CREATININE - SERUM 0.9 mg/dL (0.6-1.3); GLUCOSE 98 mg/dL (74-106); POTASSIUM - SERUM 3.2 mmol/L (3.5-5.1); SODIUM 138 mmol/L (136-145); UREA NITROGEN 5 mg/dL (7-18); eGFR NON AFRICAN AMERICAN > 90 mL/min (90-120)
[2018-03-23 08:00] VITALS: BP 151/90
[2018-03-23 11:45] VITALS: BP 143/94
[2018-03-23 15:46] VITALS: BP 149/91
[2018-03-23 19:56] VITALS: BP 142/83
[2018-03-24] VITALS: BP 148/92
[2018-03-24 04:06] VITALS: BP 149/103
[2018-03-24 05:43] LABS: BASOPHILS 0.2 % (0-2); EOSINOPHILS 2.7 % (0-7); HEMATOCRIT 33.1 % (42.0-54.0); HEMOGLOBIN 10.3 g/dL (13.5-17.5); IMMATURE GRANULOCYTES 0.3 % (0-5); LYMPHOCYTES 28.6 % (15-50); MCH 24.3 pg (26.0-34.0); MCHC 31.1 g/dL (31.0-37.0); MCV 78.3 fL (80.0-100.0); MEAN PLATELET VOLUME 9.1 fL (7.4-10.4); MONOCYTES 8.6 % (2-11); NEUTROPHILS 59.6 % (40-80); PLATELET COUNT 601 10x3/uL (130-400); RBC 4.23 10x6/uL (4.20-6.10); RDW 16.8 % (11.5-14.5)
[2018-03-24 06:09] LABS: CALC OSMOLALITY 273 mosm/kg (275-300); CALCIUM 9.2 mg/dL (8.5-10.1); CARBON DIOXIDE 28.9 mmol/L (21.0-32.0); CHLORIDE - SERUM 102 mmol/L (98-107); CREATININE - SERUM 0.8 mg/dL (0.6-1.3); GLUCOSE 89 mg/dL (74-106); SODIUM 139 mmol/L (136-145); UREA NITROGEN 5 mg/dL (7-18); eGFR NON AFRICAN AMERICAN > 90 mL/min (90-120)
[2018-03-24 06:10] LABS: POTASSIUM - SERUM 3.7 mmol/L (3.5-5.1)
[2018-03-24 08:45] VITALS: BP 135/89
[2018-03-24 12:39] VITALS: BP 132/82
[2018-03-24 16:37] VITALS: BP 139/85
[2018-03-24 19:59] VITALS: BP 147/93
[2018-03-25] VITALS: BP 160/100
[2018-03-25 04:00] VITALS: BP 140/87
[2018-03-25 06:57] LABS: BASOPHILS 0.1 % (0-2); EOSINOPHILS 2.6 % (0-7); HEMATOCRIT 33.8 % (42.0-54.0); HEMOGLOBIN 10.4 g/dL (13.5-17.5); IMMATURE GRANULOCYTES 0.2 % (0-5); LYMPHOCYTES 25.7 % (15-50); MCH 24.1 pg (26.0-34.0); MCHC 30.8 g/dL (31.0-37.0); MCV 78.4 fL (80.0-100.0); MEAN PLATELET VOLUME 9.2 fL (7.4-10.4); MONOCYTES 7.1 % (2-11); NEUTROPHILS 64.3 % (40-80); PLATELET COUNT 637 10x3/uL (130-400); RBC 4.31 10x6/uL (4.20-6.10); RDW 17.1 % (11.5-14.5); WBC 10.5 10x3/uL (4.8-10.8)
[2018-03-25 06:59] LABS: CALC OSMOLALITY 271 mosm/kg (275-300); CALCIUM 9.1 mg/dL (8.5-10.1); CARBON DIOXIDE 27.8 mmol/L (21.0-32.0); CHLORIDE - SERUM 102 mmol/L (98-107); CREATININE - SERUM 0.8 mg/dL (0.6-1.3); GLUCOSE 90 mg/dL (74-106); POTASSIUM - SERUM 3.7 mmol/L (3.5-5.1); SODIUM 137 mmol/L (136-145); UREA NITROGEN 6 mg/dL (7-18); eGFR NON AFRICAN AMERICAN > 90 mL/min (90-120)
[2018-03-25 09:18] VITALS: BP 144/96
[2018-03-25 13:25] VITALS: BP 140/93
[2018-03-25 16:20] VITALS: BP 130/91
[2018-03-25 20:00] VITALS: BP 150/86
[2018-03-26] VITALS (10 sets, daily range): BP systolic 127–168; BP diastolic 75–107
[2018-03-26 06:12] LABS: BASOPHILS 0.1 % (0-2); EOSINOPHILS 2.6 % (0-7); HEMATOCRIT 35.3 % (42.0-54.0); HEMOGLOBIN 10.8 g/dL (13.5-17.5); IMMATURE GRANULOCYTES 0.3 % (0-5); LYMPHOCYTES 29.6 % (15-50); MCHC 30.6 g/dL (31.0-37.0); MCV 78.4 fL (80.0-100.0); MEAN PLATELET VOLUME 9.4 fL (7.4-10.4); MONOCYTES 7.4 % (2-11); PLATELET COUNT 667 10x3/uL (130-400); RDW 17.4 % (11.5-14.5); WBC 10.5 10x3/uL (4.8-10.8)
[2018-03-26 06:40] LABS: CALC OSMOLALITY 272 mosm/kg (275-300); CALCIUM 9.2 mg/dL (8.5-10.1); CARBON DIOXIDE 28.2 mmol/L (21.0-32.0); CHLORIDE - SERUM 102 mmol/L (98-107); CREATININE - SERUM 0.8 mg/dL (0.6-1.3); GLUCOSE 82 mg/dL (74-106); POTASSIUM - SERUM 3.9 mmol/L (3.5-5.1); SODIUM 138 mmol/L (136-145); UREA NITROGEN 7 mg/dL (7-18); eGFR NON AFRICAN AMERICAN > 90 mL/min (90-120)
[2018-03-27] VITALS (7 sets, daily range): BP systolic 123–145; BP diastolic 71–87
[2018-03-27 06:58] LABS: BASOPHILS 0.1 % (0-2); EOSINOPHILS 1.6 % (0-7); HEMATOCRIT 33.8 % (42.0-54.0); HEMOGLOBIN 10.5 g/dL (13.5-17.5); IMMATURE GRANULOCYTES 0.2 % (0-5); LYMPHOCYTES 20.8 % (15-50); MCH 24.6 pg (26.0-34.0); MCHC 31.1 g/dL (31.0-37.0); MCV 79.2 fL (80.0-100.0); MEAN PLATELET VOLUME 9.4 fL (7.4-10.4); MONOCYTES 6.3 % (2-11); PLATELET COUNT 565 10x3/uL (130-400); RBC 4.27 10x6/uL (4.20-6.10); RDW 17.6 % (11.5-14.5)
[2018-03-27 06:59] LABS: WBC 13.5 10x3/uL (4.8-10.8)
[2018-03-27 07:24] LABS: CALC OSMOLALITY 267 mosm/kg (275-300); CALCIUM 8.6 mg/dL (8.5-10.1); CARBON DIOXIDE 25.7 mmol/L (21.0-32.0); CHLORIDE - SERUM 101 mmol/L (98-107); CREATININE - SERUM 0.9 mg/dL (0.6-1.3); GLUCOSE 85 mg/dL (74-106); SODIUM 135 mmol/L (136-145); eGFR NON AFRICAN AMERICAN > 90 mL/min (90-120)
[2018-03-27 07:25] LABS: UREA NITROGEN 9 mg/dL (7-18)
[2018-03-28 04:01] VITALS: BP 112/68
[2018-03-28 05:22] LABS: BASOPHILS 0.1 % (0-2); EOSINOPHILS 3.5 % (0-7); HEMATOCRIT 33.2 % (42.0-54.0); HEMOGLOBIN 10.1 g/dL (13.5-17.5); IMMATURE GRANULOCYTES 0.2 % (0-5); LYMPHOCYTES 22.2 % (15-50); MCH 23.8 pg (26.0-34.0); MCHC 30.4 g/dL (31.0-37.0); MCV 78.3 fL (80.0-100.0); MONOCYTES 9.3 % (2-11); NEUTROPHILS 64.7 % (40-80); PLATELET COUNT 580 10x3/uL (130-400); RBC 4.24 10x6/uL (4.20-6.10); RDW 17.6 % (11.5-14.5); WBC 10.5 10x3/uL (4.8-10.8)
[2018-03-28 05:42] LABS: ALBUMIN 2.4 g/dL (3.4-5.0); ALKALINE PHOSPHATASE 104 U/L (46-116); ALT (SGPT) 13 U/L (10-68); BILIRUBIN - TOTAL 0.19 mg/dL (0.2-1.3); CALC OSMOLALITY 265 mosm/kg (275-300); CALCIUM 8.7 mg/dL (8.5-10.1); CARBON DIOXIDE 28.9 mmol/L (21.0-32.0); CHLORIDE - SERUM 101 mmol/L (98-107); CREATININE - SERUM 0.9 mg/dL (0.6-1.3); GLUCOSE 110 mg/dL (74-106); POTASSIUM - SERUM 3.9 mmol/L (3.5-5.1); PROTEIN - SERUM 7.4 g/dL (6.4-8.2); SODIUM 134 mmol/L (136-145); eGFR NON AFRICAN AMERICAN > 90 mL/min (90-120)
[2018-03-28 05:44] LABS: UREA NITROGEN 5 mg/dL (7-18)
[2018-03-28 08:55] VITALS: BP 115/71
[2018-03-28 12:12] VITALS: BP 116/60
[2018-03-28 16:12] VITALS: BP 117/76
[2018-03-28 20:00] VITALS: BP 131/66
[2018-03-28 23:49] VITALS: BP 156/83
[2018-03-29 04:00] VITALS: BP 148/79
[2018-03-29 08:11] VITALS: BP 135/79
[2018-03-29 12:15] VITALS: BP 139/80
[2018-03-29 14:38] LABS: BASOPHILS 0.1 % (0-2); EOSINOPHILS 4.4 % (0-7); HEMOGLOBIN 10.3 g/dL (13.5-17.5); IMMATURE GRANULOCYTES 0.4 % (0-5); LYMPHOCYTES 24.5 % (15-50); MCH 23.8 pg (26.0-34.0); MCHC 30.3 g/dL (31.0-37.0); MCV 78.7 fL (80.0-100.0); MEAN PLATELET VOLUME 9.3 fL (7.4-10.4); MONOCYTES 8.8 % (2-11); NEUTROPHILS 61.8 % (40-80); PLATELET COUNT 536 10x3/uL (130-400); RBC 4.32 10x6/uL (4.20-6.10); RDW 17.4 % (11.5-14.5); WBC 9.8 10x3/uL (4.8-10.8)
[2018-03-29 15:04] LABS: ALBUMIN 2.5 g/dL (3.4-5.0); ALKALINE PHOSPHATASE 112 U/L (46-116); ALT (SGPT) 15 U/L (10-68); BILIRUBIN - TOTAL 0.32 mg/dL (0.2-1.3); CALC OSMOLALITY 270 mosm/kg (275-300); CALCIUM 8.7 mg/dL (8.5-10.1); CHLORIDE - SERUM 101 mmol/L (98-107); CREATININE - SERUM 0.5 mg/dL (0.6-1.3); GLUCOSE 104 mg/dL (74-106); POTASSIUM - SERUM 4.9 mmol/L (3.5-5.1); PROTEIN - SERUM 7.3 g/dL (6.4-8.2); SODIUM 137 mmol/L (136-145); UREA NITROGEN 5 mg/dL (7-18); eGFR NON AFRICAN AMERICAN > 90 mL/min (90-120)
[2018-03-29 16:18] VITALS: BP 139/74
[2018-03-29 20:47] VITALS: BP 143/82
[2018-03-29 23:51] VITALS: BP 155/83
[2018-03-30 04:23] VITALS: BP 151/79
[2018-03-30 06:53] LABS: HEMATOCRIT 32.6 % (42.0-54.0); HEMOGLOBIN 10.1 g/dL (13.5-17.5); MCV 77.4 fL (80.0-100.0); MEAN PLATELET VOLUME 10.1 fL (7.4-10.4); RBC 4.21 10x6/uL (4.20-6.10); RDW 17.4 % (11.5-14.5)
[2018-03-30 07:06] LABS: CALC OSMOLALITY 274 mosm/kg (275-300); CALCIUM 9.2 mg/dL (8.5-10.1); CHLORIDE - SERUM 101 mmol/L (98-107); CREATININE - SERUM 0.8 mg/dL (0.6-1.3); GLUCOSE 102 mg/dL (74-106); POTASSIUM - SERUM 3.8 mmol/L (3.5-5.1); SODIUM 139 mmol/L (136-145); UREA NITROGEN 4 mg/dL (7-18); eGFR NON AFRICAN AMERICAN > 90 mL/min (90-120)
[2018-03-30 08:45] VITALS: BP 134/79
[2018-03-30 12:50] VITALS: BP 134/85
[2018-03-30 16:25] VITALS: BP 146/75
[2018-03-30 20:00] VITALS: BP 127/69
[2018-03-31] VITALS: BP 133/71
[2018-03-31 05:43] VITALS: BP 126/83
[2018-03-31 09:02] VITALS: BP 126/78
[2018-03-31 12:09] LABS: C-REACTIVE PROTEIN 11.1 mg/dL (0.0-0.9); VANCOMYCIN - TROUGH 16.8 ug/mL (10.0-20.0)
[2018-03-31 12:12] LABS: BASOPHILS 0.1 % (0-2); EOSINOPHILS 4.4 % (0-7); HEMATOCRIT 31.7 % (42.0-54.0); HEMOGLOBIN 9.8 g/dL (13.5-17.5); IMMATURE GRANULOCYTES 0.2 % (0-5); LYMPHOCYTES 24.1 % (15-50); MCH 24.3 pg (26.0-34.0); MCHC 30.9 g/dL (31.0-37.0); MCV 78.5 fL (80.0-100.0); MONOCYTES 8.2 % (2-11); PLATELET COUNT 556 10x3/uL (130-400); RBC 4.04 10x6/uL (4.20-6.10); RDW 17.4 % (11.5-14.5); WBC 10.2 10x3/uL (4.8-10.8)
[2018-03-31 12:25] LABS: ALBUMIN 2.3 g/dL (3.4-5.0); ALKALINE PHOSPHATASE 100 U/L (46-116); ALT (SGPT) 18 U/L (10-68); BILIRUBIN - TOTAL 0.17 mg/dL (0.2-1.3); CALC OSMOLALITY 280 mosm/kg (275-300); CALCIUM 8.8 mg/dL (8.5-10.1); CHLORIDE - SERUM 103 mmol/L (98-107); CREATININE - SERUM 0.9 mg/dL (0.6-1.3); GLUCOSE 100 mg/dL (74-106); POTASSIUM - SERUM 3.9 mmol/L (3.5-5.1); PROTEIN - SERUM 7.4 g/dL (6.4-8.2); SODIUM 142 mmol/L (136-145); UREA NITROGEN 6 mg/dL (7-18); eGFR NON AFRICAN AMERICAN > 90 mL/min (90-120)
[2018-03-31 13:02] LABS: ERYTHROCYTE SEDIMENTATION RATE 70 mm/hr (0-15)
[2018-03-31 14:08] VITALS: BP 123/79
[2018-03-31 16:56] VITALS: BP 123/66
[2018-03-31 19:56] VITALS: BP 129/72
[2018-04-01] VITALS (7 sets, daily range): BP systolic 118–141; BP diastolic 60–81
[2018-04-01 06:05] LABS: BASOPHILS 0.3 % (0-2); EOSINOPHILS 5.8 % (0-7); HEMATOCRIT 30.1 % (42.0-54.0); HEMOGLOBIN 9.3 g/dL (13.5-17.5); IMMATURE GRANULOCYTES 0.8 % (0-5); LYMPHOCYTES 27.1 % (15-50); MCH 24.1 pg (26.0-34.0); MCHC 30.9 g/dL (31.0-37.0); MEAN PLATELET VOLUME 9.6 fL (7.4-10.4); MONOCYTES 8.8 % (2-11); NEUTROPHILS 57.2 % (40-80); RBC 3.86 10x6/uL (4.20-6.10); RDW 17.6 % (11.5-14.5); WBC 7.7 10x3/uL (4.8-10.8)
[2018-04-01 06:09] LABS: PLATELET COUNT 371 10x3/uL (130-400)
[2018-04-01 07:38] LABS: ALBUMIN 2.4 g/dL (3.4-5.0); ALKALINE PHOSPHATASE 104 U/L (46-116); ALT (SGPT) 19 U/L (10-68); BILIRUBIN - TOTAL 0.16 mg/dL (0.2-1.3); CALC OSMOLALITY 272 mosm/kg (275-300); CALCIUM 8.9 mg/dL (8.5-10.1); CHLORIDE - SERUM 103 mmol/L (98-107); CREATININE - SERUM 0.7 mg/dL (0.6-1.3); GLUCOSE 88 mg/dL (74-106); POTASSIUM - SERUM 4.1 mmol/L (3.5-5.1); PROTEIN - SERUM 7.7 g/dL (6.4-8.2); SODIUM 138 mmol/L (136-145); UREA NITROGEN 6 mg/dL (7-18); eGFR NON AFRICAN AMERICAN > 90 mL/min (90-120)
[2018-04-02 04:20] VITALS: BP 113/55
[2018-04-02 05:23] LABS: BASOPHILS 0.1 % (0-2); EOSINOPHILS 4.7 % (0-7); HEMATOCRIT 32.7 % (42.0-54.0); HEMOGLOBIN 10.1 g/dL (13.5-17.5); IMMATURE GRANULOCYTES 0.3 % (0-5); LYMPHOCYTES 31.2 % (15-50); MCH 24.4 pg (26.0-34.0); MCHC 30.9 g/dL (31.0-37.0); MEAN PLATELET VOLUME 9.2 fL (7.4-10.4); MONOCYTES 8.4 % (2-11); NEUTROPHILS 55.3 % (40-80); RBC 4.14 10x6/uL (4.20-6.10); RDW 17.9 % (11.5-14.5); WBC 9.2 10x3/uL (4.8-10.8)
[2018-04-02 05:27] LABS: PLATELET COUNT 609 10x3/uL (130-400)
[2018-04-02 05:31] LABS: ERYTHROCYTE SEDIMENTATION RATE 78 mm/hr (0-15)
[2018-04-02 06:18] LABS: ALBUMIN 2.5 g/dL (3.4-5.0); ALKALINE PHOSPHATASE 116 U/L (46-116); C-REACTIVE PROTEIN 10.5 mg/dL (0.0-0.9); CALC OSMOLALITY 274 mosm/kg (275-300); CALCIUM 9.1 mg/dL (8.5-10.1); CARBON DIOXIDE 28.3 mmol/L (21.0-32.0); CHLORIDE - SERUM 102 mmol/L (98-107); CREATININE - SERUM 0.8 mg/dL (0.6-1.3); GLUCOSE 84 mg/dL (74-106); POTASSIUM - SERUM 4.7 mmol/L (3.5-5.1); PROTEIN - SERUM 7.3 g/dL (6.4-8.2); SODIUM 139 mmol/L (136-145); UREA NITROGEN 7 mg/dL (7-18); eGFR NON AFRICAN AMERICAN > 90 mL/min (90-120)
[2018-04-02 06:26] LABS: ALT (SGPT) 24 U/L (10-68)
[2018-04-02 08:33] VITALS: BP 111/69
[2018-04-02 12:49] VITALS: BP 123/57
[2018-04-02] MEDS ORDERED: ELIQUIS2.5 MG PO (15:39)
[2018-04-02] MEDS ORDERED: PROTONIX40 MG PO (15:40)
[2018-04-02 16:58] VITALS: BP 139/73
== END 2018-04-02 17:09 | disposition home health service (06) | DRG 492 ==
LOC: D.ER 20:53 → D.EDHOLD 22:33 → D.MS 22:33
PROVIDERS: Family Medicine; General Practice; Internal Medicine Nephrology; Orthopaedic Surgery; Orthopaedic Surgery Foot and Ankle Surgery
PROC: 0S9D3ZZ Drainage of Left Knee Joint, Percutaneous Approach (ICD-10-PCS; principal; 2018-03-22 10:35)
PROC: 0SPD08Z Removal of Spacer from Left Knee Joint, Open Approach (ICD-10-PCS; 2018-03-26)
PROC: 0SHD08Z Insertion of Spacer into Left Knee Joint, Open Approach (ICD-10-PCS; 2018-03-26)
PROC: 0QBH0ZZ Excision of Left Tibia, Open Approach (ICD-10-PCS; 2018-03-26)
PROC: 0QBK0ZZ Excision of Left Fibula, Open Approach (ICD-10-PCS; 2018-03-26 16:15)
PROC: 05HC33Z Insertion of Infusion Device into Left Basilic Vein, Percutaneous Approach (ICD-10-PCS; 2018-04-01)
PROC: B54NZZA Ultrasonography of Left Upper Extremity Veins, Guidance (ICD-10-PCS; 2018-04-01)
DX: T84.54XA Infection and inflammatory reaction due to internal left knee prosthesis, initial encounter (principal); A41.9 Sepsis, unspecified organism; D47.3 Essential (hemorrhagic) thrombocythemia; E87.6 Hypokalemia; I10 Essential (primary) hypertension; E66.01 Morbid (severe) obesity due to excess calories; Z68.37 Body mass index [BMI] 37.0-37.9, adult; F17.210 Nicotine dependence, cigarettes, uncomplicated

== ENCOUNTER 2018-04-06 15:40 | Inpatient (IN) | payer MEDICAID ==
[~2018-04-06] VITALS: Ht 167.6 cm; Wt 157.7 kg
[~2018-04-06 15:40] MED LIST changes: +PROTONIX40 MG PO
[2018-04-06 20:00] LABS: BASOPHILS 0.1 % (0-2); EOSINOPHILS 0.4 % (0-7); HEMATOCRIT 36.2 % (42.0-54.0); HEMOGLOBIN 11.2 g/dL (13.5-17.5); IMMATURE GRANULOCYTES 0.1 % (0-5); LYMPHOCYTES 24.9 % (15-50); MCH 24.1 pg (26.0-34.0); MCHC 30.9 g/dL (31.0-37.0); MCV 77.8 fL (80.0-100.0); MEAN PLATELET VOLUME 9.4 fL (7.4-10.4); MONOCYTES 6.4 % (2-11); NEUTROPHILS 68.1 % (40-80); PLATELET COUNT 602 10x3/uL (130-400); RBC 4.65 10x6/uL (4.20-6.10); RDW 18.6 % (11.5-14.5)
[2018-04-06 20:11] LABS: ALBUMIN 3.1 g/dL (3.4-5.0); ALKALINE PHOSPHATASE 127 U/L (46-116); ALT (SGPT) 33 U/L (10-68); BILIRUBIN - TOTAL 0.22 mg/dL (0.2-1.3); CALC OSMOLALITY 277 mosm/kg (275-300); CALCIUM 9.3 mg/dL (8.5-10.1); CARBON DIOXIDE 28.1 mmol/L (21.0-32.0); CHLORIDE - SERUM 103 mmol/L (98-107); CREATININE - SERUM 0.8 mg/dL (0.6-1.3); GLUCOSE 91 mg/dL (74-106); PROTEIN - SERUM 8.4 g/dL (6.4-8.2); SODIUM 141 mmol/L (136-145); UREA NITROGEN 4 mg/dL (7-18); eGFR NON AFRICAN AMERICAN > 90 mL/min (90-120)
[2018-04-07 02:48] VITALS: BP 154/82; Ht 167.6 cm; Wt 157.7 kg
[2018-04-07 04:10] VITALS: BP 164/84
[2018-04-07 06:32] LABS: BASOPHILS 0.2 % (0-2); EOSINOPHILS 1.3 % (0-7); HEMATOCRIT 32.9 % (42.0-54.0); HEMOGLOBIN 10.2 g/dL (13.5-17.5); IMMATURE GRANULOCYTES 0.2 % (0-5); LYMPHOCYTES 40.3 % (15-50); MCH 24.5 pg (26.0-34.0); MCV 79.1 fL (80.0-100.0); MEAN PLATELET VOLUME 9.3 fL (7.4-10.4); MONOCYTES 10.6 % (2-11); NEUTROPHILS 47.4 % (40-80); PLATELET COUNT 611 10x3/uL (130-400); RBC 4.16 10x6/uL (4.20-6.10); RDW 19.1 % (11.5-14.5); WBC 8.2 10x3/uL (4.8-10.8)
[2018-04-07 06:35] LABS: INR 1.12 (0.85-1.17)
[2018-04-07 06:54] LABS: CALC OSMOLALITY 277 mosm/kg (275-300); CALCIUM 9.1 mg/dL (8.5-10.1); CARBON DIOXIDE 28.9 mmol/L (21.0-32.0); CHLORIDE - SERUM 104 mmol/L (98-107); CREATININE - SERUM 0.9 mg/dL (0.6-1.3); GLUCOSE 80 mg/dL (74-106); POTASSIUM - SERUM 3.6 mmol/L (3.5-5.1); SODIUM 141 mmol/L (136-145); eGFR NON AFRICAN AMERICAN > 90 mL/min (90-120)
[2018-04-07 06:55] LABS: UREA NITROGEN 6 mg/dL (7-18)
[2018-04-07 08:30] VITALS: BP 96/50
[2018-04-07 12:35] VITALS: BP 127/77
[2018-04-07 16:14] VITALS: BP 117/68
[2018-04-07 22:18] VITALS: BP 124/63
[2018-04-08 04:10] VITALS: BP 135/67
[2018-04-08 07:52] VITALS: BP 110/69
[2018-04-09] MEDS ORDERED: VANCOMYCIN 1 GM/1 G1 IV (15:58)
== END 2018-04-08 17:07 | disposition home health service (06) | DRG 549 ==
LOC: D.ER 15:40 → D.EDHOLD 21:58 → D.MS 21:58
PROVIDERS: Family Medicine
DX: M00.9 Pyogenic arthritis, unspecified (principal); Z68.43 Body mass index [BMI] 50.0-59.9, adult; F32.9 Major depressive disorder, single episode, unspecified; F41.9 Anxiety disorder, unspecified; E66.01 Morbid (severe) obesity due to excess calories; F17.210 Nicotine dependence, cigarettes, uncomplicated

== ENCOUNTER 2018-04-09 15:19 | Emergency (ER) | payer MEDICAID ==
[~2018-04-09] VITALS: Ht 167.6 cm; Wt 154.5 kg
[2018-04-09 15:56] VITALS: Ht 167.6 cm; Wt 154.5 kg
[2018-04-09] MEDS ORDERED: VANCOMYCIN 1 GM/1 G1 IV (15:58)
[2018-04-09 18:57] LABS: APPEARANCE CLEAR (CLEAR); BILIRUBIN NEGATIVE (NEGATIVE); COLOR YELLOW (YELLOW); GLUCOSE NEGATIVE (NEGATIVE); KETONE NEGATIVE (NEGATIVE); NITRITE NEGATIVE (NEGATIVE); PROTEIN NEGATIVE (NEGATIVE); UROBILINOGEN NORMAL (NORMAL)
[2018-04-09 20:23] VITALS: BP 132/83
== END 2018-04-09 20:24 | disposition home or self-care (01) ==
LOC: D.ER 15:19
PROVIDERS: Emergency Medicine
DX: N50.812 Left testicular pain (principal); G89.18 Other acute postprocedural pain

== ENCOUNTER → 2018-04-10 11:10 | Outpatient (CLI) | payer MEDICAID ==
[2018-04-09 15:56] VITALS: BMI 55.0
[~2018-04-10 11:10] MED LIST changes: +VANCOMYCIN 1 GM/1 G1 IV
[2018-04-10 14:19] LABS: BASOPHILS 0.1 % (0-2); EOSINOPHILS 0.6 % (0-7); HEMATOCRIT 37.8 % (42.0-54.0); HEMOGLOBIN 12.1 g/dL (13.5-17.5); IMMATURE GRANULOCYTES 0.3 % (0-5); LYMPHOCYTES 22.9 % (15-50); MCV 78.1 fL (80.0-100.0); MEAN PLATELET VOLUME 9.2 fL (7.4-10.4); MONOCYTES 6.2 % (2-11); NEUTROPHILS 69.9 % (40-80); PLATELET COUNT 580 10x3/uL (130-400); RBC 4.84 10x6/uL (4.20-6.10); RDW 19.2 % (11.5-14.5)
[2018-04-10 15:37] LABS: ERYTHROCYTE SEDIMENTATION RATE 60 mm/hr (0-15)
== END | disposition home or self-care (01) ==
LOC: D.US 11:00
PROVIDERS: Orthopaedic Surgery
DX: R60.0 Localized edema (principal); T84.54XA Infection and inflammatory reaction due to internal left knee prosthesis, initial encounter

== ENCOUNTER 2018-04-18 11:40 | Outpatient (CLI) | payer MEDICAID ==
[2018-04-09 15:56] VITALS: BMI 55.0
[2018-04-18 12:28] LABS: APPEARANCE CLEAR (CLEAR); BILIRUBIN NEGATIVE (NEGATIVE); COLOR YELLOW (YELLOW); GLUCOSE NEGATIVE (NEGATIVE); KETONE NEGATIVE (NEGATIVE); NITRITE NEGATIVE (NEGATIVE); PROTEIN NEGATIVE (NEGATIVE); SPECIFIC GRAVITY 1.015 (1.005-1.020); UROBILINOGEN NORMAL (NORMAL)
== END 2018-04-18 14:45 | disposition home or self-care (01) ==
LOC: D.OPS 11:40
PROVIDERS: Student in an Organized Health Care Education/Training Program
DX: M25.469 Effusion, unspecified knee (principal); T84.50XD Infection and inflammatory reaction due to unspecified internal joint prosthesis, subsequent encounter; Z01.812 Encounter for preprocedural laboratory examination

== ENCOUNTER 2018-05-14 09:35 | Inpatient (IN) | payer MEDICAID ==
[2018-05-11 09:09] LABS: BASOPHILS 0.2 % (0-2); EOSINOPHILS 2.2 % (0-7); HEMATOCRIT 43.3 % (42.0-54.0); HEMOGLOBIN 13.9 g/dL (13.5-17.5); IMMATURE GRANULOCYTES 0.3 % (0-5); MCH 25.6 pg (26.0-34.0); MCHC 32.1 g/dL (31.0-37.0); MCV 79.6 fL (80.0-100.0); MEAN PLATELET VOLUME 9.2 fL (7.4-10.4); MONOCYTES 7.5 % (2-11); NEUTROPHILS 57.8 % (40-80); PLATELET COUNT 524 10x3/uL (130-400); RBC 5.44 10x6/uL (4.20-6.10); RDW 19.5 % (11.5-14.5); WBC 11.9 10x3/uL (4.8-10.8)
[2018-05-11 09:33] LABS: CALC OSMOLALITY 278 mosm/kg (275-300); CARBON DIOXIDE 27.3 mmol/L (21.0-32.0); CHLORIDE - SERUM 105 mmol/L (98-107); CREATININE - SERUM 0.9 mg/dL (0.6-1.3); GLUCOSE 93 mg/dL (74-106); POTASSIUM - SERUM 3.4 mmol/L (3.5-5.1); SODIUM 141 mmol/L (136-145); UREA NITROGEN 6 mg/dL (7-18); eGFR NON AFRICAN AMERICAN > 90 mL/min (90-120)
[2018-05-11 09:39] LABS: APPEARANCE CLEAR (CLEAR); BILIRUBIN NEGATIVE (NEGATIVE); COLOR YELLOW (YELLOW); GLUCOSE NEGATIVE (NEGATIVE); KETONE NEGATIVE (NEGATIVE); NITRITE NEGATIVE (NEGATIVE); PROTEIN NEGATIVE (NEGATIVE); SPECIFIC GRAVITY 1.015 (1.005-1.020); UROBILINOGEN NORMAL (NORMAL)
[2018-05-11 09:44] LABS: APTT 31.7 SECONDS (22.8-39.4); INR 1.01 (0.85-1.17); PROTIME 12.9 SECONDS (11.6-15.0)
[~2018-05-14] VITALS: Ht 167.6 cm; Wt 154.5 kg
--- NOTE | ~2018-05-14 | OP ---
PATIENT NAME: RAKEL ROJAS MEDICAL RECORD: [id number] :82 LOCATION:D.MS Cohen220Janette ADMISSION DATE:05/14/18 SURGEON: AUDI MARIE MD DATE OF OPERATION: 05/14/2018 PREOPERATIVE DIAGNOSIS: Prior infected left total knee with cement spacer. POSTOPERATIVE DIAGNOSIS: Prior infected left total knee with cement spacer. PROCEDURE: 1. Revision total knee arthroplasty, all components. 2. Removal of previously placed cement spacer. SURGEON: Audi Marie MD ANESTHESIA: General. INTRAOPERATIVE COMPLICATIONS: None. SUMMARY OF PATHOLOGIC FINDINGS: The patient has a very good bleeding bed ready for a new total knee arthroplasty as his inflammatory markers have normalized. IMPLANTS USED: [employer] Pre[employer] triathlon total stabilizing knee. Please see the chart for the absolute details. Briefly, the patient had a size 6 femur with a medial and lateral 10-mm augmentation. The patient also had a size 6 tibial baseplate with medial and lateral augments, a size 9 polyethylene insert that stems up and down. OPERATIVE SUMMARY IN DETAIL: After obtaining the appropriate preoperative orthopedic surgery consent as well as anesthetic consultation, evaluation and clearance, the patient was brought to the operating room and placed on the operating table in supine position. After adequate general laryngeal mask airway was administered, tourniquet was placed about the proximal aspect of the left lower extremity. Left lower extremity was then prepped and draped in usual sterile fashion. Leg was elevated and exsanguinated, tourniquet was inflated to 350 mmHg. An incision was made, taken down the level of the knee joint itself. Paramedian arthrotomy was performed. A gentle dissection was carried out. The cement spacer was then removed serial and sequentially. The knee was gently flexed with a slight avulsion of the patellar tendon. Distal femoral reaming was done to the appropriate size. This was followed by distal femoral cuts for augmentation followed by chamfer cuts. The trial prosthesis corresponding to the above was then put into place. Attention was then turned to the proximal tibia. Proximal tibia was serially and sequentially reamed to the appropriate size for the 100 mm distal stem. Cuts were made for a 5-mm augmentation on both medial and lateral aspects. The final trial components were then put into place, taken through range of motion and found to be stable in all planes. These were removed. The knee was copiously irrigated while the components were assembled on the back table. Final components were cemented into place. After the cement was allowed to dry, the knee was taken through range of motion and found to be stable in all planes. Wound was copiously irrigated. The paramedian arthrotomy was then closed with #2 Ethibond followed by #1 Vicryl, 2-0 Vicryl and skin patti. A Prevena dressing was applied. The tourniquet was deflated. The patient was awakened and taken to recovery room in stable condition. All final needle and sponge counts were correct. OPERATIVE REPORT [id number] RAKEL ROJAS TRANSINT:[id number] Voice Confirmation ID: [id number] DOCUMENT ID: [id number] CYNTHIA MILLER, AUDI SELF at 1459 CC: [id number] DICTATION DATE: 05/15/18 0954 ROLL SLICING MACHINE TENDER: 05/15/18 1103 ADM IN [facility] [address] [place] [id number]
[2018-05-14 10:23] VITALS: BP 120/83; BMI 55.0
[2018-05-14 18:38] VITALS: BP 142/85
[2018-05-15 03:07] VITALS: BP 120/83; Ht 167.6 cm; Wt 154.5 kg
[2018-05-15 05:02] VITALS: BP 102/71
[2018-05-15 06:01] LABS: HEMATOCRIT 38.8 % (42.0-54.0); HEMOGLOBIN 12.3 g/dL (13.5-17.5); MCH 25.2 pg (26.0-34.0); MCHC 31.7 g/dL (31.0-37.0); MCV 79.3 fL (80.0-100.0); MEAN PLATELET VOLUME 9.3 fL (7.4-10.4); RBC 4.89 10x6/uL (4.20-6.10); RDW 19.7 % (11.5-14.5); WBC 17.6 10x3/uL (4.8-10.8)
[2018-05-15 09:21] VITALS: BP 122/80
[2018-05-15 12:38] VITALS: BP 123/82
[2018-05-15 17:30] VITALS: BP 120/75
[2018-05-15 21:36] VITALS: BP 155/890
[2018-05-16 04:17] VITALS: BP 118/79
[2018-05-16 06:33] LABS: HEMATOCRIT 38.9 % (42.0-54.0); HEMOGLOBIN 12.2 g/dL (13.5-17.5); MCH 25.1 pg (26.0-34.0); MCHC 31.4 g/dL (31.0-37.0); MEAN PLATELET VOLUME 9.6 fL (7.4-10.4); RBC 4.86 10x6/uL (4.20-6.10); RDW 20.1 % (11.5-14.5)
[2018-05-16 06:34] LABS: WBC 12.8 10x3/uL (4.8-10.8)
[2018-05-16 08:40] VITALS: BP 139/80
[2018-05-16 12:19] VITALS: BP 106/82
[2018-05-16 16:37] VITALS: BP 138/82
[2018-05-16 19:50] VITALS: BP 144/77
[2018-05-17] VITALS: BP 116/66
[2018-05-17 04:00] VITALS: BP 123/66
[2018-05-17] MEDS ORDERED: DILAUDID4 MG PO (07:51)
[2018-05-17 08:19] VITALS: BP 133/82
[2018-05-17 12:55] VITALS: BP 138/75
== END 2018-05-17 12:58 | disposition home or self-care (01) | DRG 467 ==
LOC: D.MS 09:35 → D.SDCHOLD 09:35 → D.MS 17:29
PROVIDERS: Orthopaedic Surgery
PROC: 0SRD0J9 Replacement of Left Knee Joint with Synthetic Substitute, Cemented, Open Approach (ICD-10-PCS; 2018-05-14)
PROC: 0SHD08Z Insertion of Spacer into Left Knee Joint, Open Approach (ICD-10-PCS; 2018-05-14)
PROC: 0SPD0JZ Removal of Synthetic Substitute from Left Knee Joint, Open Approach (ICD-10-PCS; principal; 2018-05-14 12:15)
DX: Z47.33 Aftercare following explantation of knee joint prosthesis (principal); E66.2 Morbid (severe) obesity with alveolar hypoventilation; Z68.43 Body mass index [BMI] 50.0-59.9, adult; F17.200 Nicotine dependence, unspecified, uncomplicated

== ENCOUNTER 2018-06-12 01:40 | Inpatient (IN) | payer MEDICAID ==
[~2018-06-12] VITALS: Ht 167.6 cm; Wt 156.8 kg
--- NOTE | ~2018-06-12 | HEMODYNAMI ---
PATIENT:RAKEL ROJAS MEDICAL RECORD: [id number] : 82 LOCATION:D.MS Cohen2232 ADMISSION DATE: 06/12/18 Generatedon:06/13/20189:22 Patient name: RAKEL ROJAS Patient #: [id number] SSN: : 1980 Date of study: 06/13/2018 Page: Of Hemodynamic Procedure Report Patient Data Patient Demographics Procedure consent was obtained First Name: RAKEL Gender: Male Last Name: BOB : 1980 Middle Initial: EDWARD Age: 37 year(s) Patient #: [id number] Race: Unknown Additional ID: [id number] Contact details [address]: [address] [place] [address] State: [place] City: [place] Zip code: [address] Admission Admission Data Admission Date: 06/12/2018 Admission Time: 3:53 Room #: D.2232 Procedure Procedure Types Cath Procedure Peripheral Cath Diagnostic Procedure Miscellaneous Joint Aspiration/Injection w/Fluoro Procedure Description Procedure Date Procedure Date: 06/13/2018 Procedure Start Time: 8:49 Procedure End Time: 9:20 Procedure Staff Name Function Zahida Young MD Performing Physician Terese Hidalgo RT Monitor Elva Morton RN Nurse Terese Hidalgo RT Scrub Procedure Data Cath Procedure Fluoroscopy Diagnostic fluoroscopy Total fluoroscopy Time: 0 time: 0 min min Diagnostic fluoroscopy Total fluoroscopy dose: 0 dose: 0 mGy mGy Contrast Material Contrast Material Type Amount (ml) Isovue 300 0 Hemodynamics Rest Pre Cath Intra NCS Post Cath Procedure Log Time Note 8:35:32 Elva Morton RN sent for patient. Start room use. 8:35:37 Time tracking: Regular hours (M-F 7:00 - 5:00) 8:36:08 Patient received from Med/Surg to IR Alert and oriented. Tansferred to table in Supine position. 8:36:11 Warm blankets applied on for patient comfort. 8:36:16 Correct patient and procedure confirmed by team. 8:36:20 Signed procedure consent form obtained from patient. 8:36:25 Full Disclosure recording started 8:36:47 Physician arrived 8:36:48 --------ALL STOP TIME OUT------ 8:36:51 Final Timeout: patient, procedure, and site verified with staff and physician. All members of the team are in agreement. 8:37:11 Left knee. 8:37:16 Pt had Levnox 06-12-18. 8:37:39 No family with patient at this time. 8:37:40 Pt states no allergies. 8:38:47 Left Knee was preped and draped in sterile fashion with dura prep. 8:39:04 Procedure started. 8:49:03 Local anesthetic to left knee with Lidocaine 1% by Zahida Young MD.INITIAL ACCESS ONLY 9:00:31 Procedure ended.(Physican Out) 9:00:46 Fluoroscopy time 00.00 minutes. 9:00:51 Fluoroscopy dose: 0 mGy 9:00:51 Flurop Dose total: 0 9:01:00 Contrast amount:Isovue 300 0ml. 9:01:07 Sharps counted by scrub and verified . 9:01:24 Post left knee:stable 9:04:01 Post procedure instruction explained to patient.Patient verbalizes understanding. 9:04:04 Patient needs reinforcement of post procedure teaching. 9:10:14 See physician's report for complete and final results. 9:10:17 Report given to Med/Surg. 9:12:23 Patient transfered to Med/Surg with Bed. 9:20:29 Procedure ended. 9:20:29 Full Disclosure recording stopped Signature Audit Gould Stage Time Signature Unsigned Intra-Procedure 06/13/2018 Terese 9:22:07 AM Gwen MITCHELL (R) (CV) Signatures Monitor : Terese Signature : Gwen RT Date : Time : [facility] [address] [place] [id number]
[2018-06-12 02:09] LABS: BASOPHILS 0.2 % (0-2); EOSINOPHILS 2.5 % (0-7); HEMATOCRIT 38.6 % (42.0-54.0); HEMOGLOBIN 12.6 g/dL (13.5-17.5); IMMATURE GRANULOCYTES 0.2 % (0-5); LYMPHOCYTES 29.1 % (15-50); MCH 25.8 pg (26.0-34.0); MCHC 32.6 g/dL (31.0-37.0); MCV 78.9 fL (80.0-100.0); MEAN PLATELET VOLUME 8.7 fL (7.4-10.4); MONOCYTES 9.3 % (2-11); NEUTROPHILS 58.7 % (40-80); RBC 4.89 10x6/uL (4.20-6.10); RDW 17.3 % (11.5-14.5); WBC 12.5 10x3/uL (4.8-10.8)
[2018-06-12 02:12] LABS: PLATELET COUNT 589 10x3/uL (130-400)
[2018-06-12 02:25] LABS: ALBUMIN 2.9 g/dL (3.4-5.0); ALKALINE PHOSPHATASE 140 U/L (46-116); ALT (SGPT) 13 U/L (10-68); BILIRUBIN - TOTAL 0.15 mg/dL (0.2-1.3); CALC OSMOLALITY 275 mosm/kg (275-300); CALCIUM 8.3 mg/dL (8.5-10.1); CARBON DIOXIDE 28.5 mmol/L (21.0-32.0); CHLORIDE - SERUM 101 mmol/L (98-107); GLUCOSE 91 mg/dL (74-106); POTASSIUM - SERUM 3.4 mmol/L (3.5-5.1); PROTEIN - SERUM 8.1 g/dL (6.4-8.2); SODIUM 139 mmol/L (136-145); UREA NITROGEN 7 mg/dL (7-18); eGFR NON AFRICAN AMERICAN 90 mL/min (90-120)
[2018-06-12 03:26] LABS: ERYTHROCYTE SEDIMENTATION RATE 55 mm/hr (0-15)
[2018-06-12 04:00] VITALS: BP 130/89
[2018-06-12 06:00] VITALS: BP 137/85
[2018-06-12 10:27] VITALS: BMI 55.7
[2018-06-12 10:30] VITALS: BP 118/84
[2018-06-12 13:24] VITALS: BP 121/85
[2018-06-12 14:25] VITALS: BP 118/84; Ht 167.6 cm; Wt 156.8 kg
[2018-06-13] VITALS: BP 115/85
[2018-06-13 04:00] VITALS: BP 128/74
[2018-06-13 08:36] LABS: APTT 31.7 SECONDS (22.8-39.4); INR 1.06 (0.85-1.17); PROTIME 13.4 SECONDS (11.6-15.0)
[2018-06-13 09:56] VITALS: BP 114/86
[2018-06-13 13:28] VITALS: BP 120/81
[2018-06-13 16:40] VITALS: BP 114/78
[2018-06-13 20:00] VITALS: BP 175/79
[2018-06-14 06:10] VITALS: BP 117/75
[2018-06-14 20:40] VITALS: BP 113/67
[2018-06-14 23:50] VITALS: BP 109/74
[2018-06-15 05:51] VITALS: BP 101/68
[2018-06-15 08:18] VITALS: BP 137/88
== END 2018-06-15 10:44 | disposition home health service (06) | DRG 560 ==
LOC: D.ER 01:40 → D.EDHOLD 03:53 → D.MS 03:53
PROVIDERS: Family Medicine; Radiology Vascular & Interventional Radiology
PROC: 0S9D3ZZ Drainage of Left Knee Joint, Percutaneous Approach (ICD-10-PCS; principal; 2018-06-13 08:30)
DX: T84.54XA Infection and inflammatory reaction due to internal left knee prosthesis, initial encounter (principal); Z68.43 Body mass index [BMI] 50.0-59.9, adult; F17.203 Nicotine dependence unspecified, with withdrawal; E66.01 Morbid (severe) obesity due to excess calories

== ENCOUNTER 2018-07-08 18:12 | Emergency (ER) | payer MEDICAID ==
[~2018-07-08] VITALS: Ht 167.6 cm; Wt 154.5 kg
[2018-07-08 18:19] VITALS: Ht 167.6 cm; Wt 154.5 kg
[2018-07-08 20:20] VITALS: BP 138/89
== END 2018-07-08 20:20 | disposition home or self-care (01) ==
LOC: D.ER 18:12
DX: M25.562 Pain in left knee (principal)

== ENCOUNTER 2018-10-02 00:03 | Emergency (ER) | payer MEDICAID ==
[~2018-10-02] VITALS: Ht 167.6 cm; Wt 159.1 kg
[2018-10-02 00:06] VITALS: Ht 167.6 cm; Wt 159.1 kg
[2018-10-02] MEDS ORDERED: OXYCODONE-APAP1 T10 PO (00:08)
[2018-10-02] MEDS ORDERED: VOLTAREN75 MG PO (01:03)
[2018-10-02 01:38] VITALS: BP 149/98
== END 2018-10-02 01:38 | disposition home or self-care (01) ==
LOC: D.ER 00:03
DX: S80.02XA Contusion of left knee, initial encounter (principal); S90.02XA Contusion of left ankle, initial encounter; W18.30XA Fall on same level, unspecified, initial encounter; Y93.89 Activity, other specified; Y92.019 Unspecified place in single-family (private) house as the place of occurrence of the external cause

== ENCOUNTER → 2018-10-10 17:54 | Outpatient (CLI) | payer MEDICAID ==
[2018-10-02 00:06] VITALS: BMI 56.6
[~2018-10-10 17:54] MED LIST changes: +OXYCODONE-APAP1 T10 PO; +VOLTAREN75 MG PO
[2018-10-10 18:39] LABS: BASOPHILS 0.3 % (0-2); EOSINOPHILS 3.1 % (0-7); HEMATOCRIT 44.2 % (42.0-54.0); HEMOGLOBIN 14.2 g/dL (13.5-17.5); IMMATURE GRANULOCYTES 0.2 % (0-5); LYMPHOCYTES 30.8 % (15-50); MCH 26.6 pg (26.0-34.0); MCHC 32.1 g/dL (31.0-37.0); MCV 82.8 fL (80.0-100.0); MEAN PLATELET VOLUME 9.8 fL (7.4-10.4); MONOCYTES 9.1 % (2-11); NEUTROPHILS 56.5 % (40-80); PLATELET COUNT 492 10x3/uL (130-400); RBC 5.34 10x6/uL (4.20-6.10); RDW 16.4 % (11.5-14.5); WBC 11.3 10x3/uL (4.8-10.8)
[2018-10-10 19:53] LABS: ERYTHROCYTE SEDIMENTATION RATE 20 mm/hr (0-15)
== END | disposition home or self-care (01) ==
LOC: D.LABREF 17:54
PROVIDERS: Orthopaedic Surgery
DX: M25.562 Pain in left knee (principal)

== ENCOUNTER → 2018-10-24 17:16 | Outpatient (CLI) | payer MEDICAID ==
[2018-10-02 00:06] VITALS: BMI 56.6
== END | disposition home or self-care (01) ==
LOC: D.LABREF 17:16
DX: Z96.652 Presence of left artificial knee joint (principal)

== ENCOUNTER → 2018-11-06 08:49 | Outpatient (CLI) | payer MEDICAID ==
[2018-10-02 00:06] VITALS: BMI 56.6
--- NOTE | ~2018-11-06 | HEMODYNAMI ---
PATIENT:RAKEL ROJAS MEDICAL RECORD: [id number] : 84 LOCATION:[facility] ADMISSION DATE: 11/06/18 Generatedon:11/06/201810:06 Patient name: RAKEL ROJAS Patient #: [id number] SSN: DO B: 1980 Date of study: 11/06/2018 Page: Of Hemodynamic Procedure Report Patient Data Patient Demographics Procedure consent was obtained First Name: RAKEL Gender: Male Last Name: BOB : 1980 Middle Initial: EDWARD Age: 38 year(s) Patient #: [id number] Race: Unknown Additional ID: [id number] Contact details Address: [address] [place] [address] State: [place] City: [place] Zip code: [address] Past Medical History Allergies: No known allergies Admission Admission Data Admission Date: 11/06/2018 Admission Time: 8:49 Procedure Procedure Types Cath Procedure Peripheral Cath Diagnostic Procedure Miscellaneous Aspiration/Injection (Joint) Procedure Description Procedure Date Procedure Date: 11/06/2018 Procedure Start Time: 9:51 Procedure Staff Name Function Zahida Young MD Performing Physician Balaji Parrish RT Monitor Balaji Parrish RT Scrub Elva Morton RN Nurse Hemodynamics Rest Pre Cath Intra NCS Post Cath Procedure Log Time Note 9:45:23 Balaji Parrish RT (R) (CV) sent for patient. Start room use. 9:45:34 Time tracking: Regular hours (M-F 7:00 - 5:00) 9:45:44 Patient received from Outpatients to IR Alert and oriented. Tansferred to table in Supine position. 9:45:47 Correct patient and procedure confirmed by team. 9:45:49 Signed procedure consent form obtained from patient. 9:45:51 Full Disclosure recording started 9:45:57 - 9:45:58 Pre-procedure instructions explained to patient. 9:45:59 Pre-op teaching completed and patient verbalized understanding. 9:46:01 Family unavailable. 9:46:05 Patient NPO since Midnight. 9:46:35 Patient allergic to No known allergies 9:46:42 Is patient on blood thinner?No 9:46:52 Left Knee was prepped with betadine and draped in sterile fashion. 9:50:01 Physician arrived 9:50:01 --------ALL STOP TIME OUT------ 9:50:02 Final Timeout: patient, procedure, and site verified with staff and physician. All members of the team are in agreement. 9:50:19 Left knee site verified by team. 9:50:47 Sedation plan: IV Moderate Sedation Medication:Lidocaine 9:51:03 Procedure started. 9:51:10 Local anesthetic to Left Knee with Lidocaine 1% by Zahida Young MD.INITIA L ACCESS ONLY 9:51:26 SAFE-T PLUS MYELOGRAM TRAY opened to sterile field. 10:05:14 Procedure ended.(Physican Out) 10:05:41 BANDAIDE APPLIED TO LT.KNEE SITE STABLE 10:05:49 PT SENT HOME Device Usage Item Name Manufacture Quantity Catalog Hospital Part Current Minimal Lot# / Number Charge Number Stock Stock Serial# Code SAFE-T Care[employer]usion 1 [id number] PLUS MYELOGRAM TRAY Signature Audit [place] Stage Time Signature Unsigned Intra-Procedure 11/06/2018 Balaji 10:06:09 AM Shivani RT (R) (CV) Signatures Monitor : Balaji Signature : Shivani RT Date : Time : [facility] [address] [place] [address]
[2018-11-06 10:33] LABS: BASOPHILS 0.2 % (0-2); EOSINOPHILS 1.6 % (0-7); HEMATOCRIT 42.6 % (42.0-54.0); HEMOGLOBIN 13.9 g/dL (13.5-17.5); IMMATURE GRANULOCYTES 0.3 % (0-5); LYMPHOCYTES 34.4 % (15-50); MCH 26.9 pg (26.0-34.0); MCHC 32.6 g/dL (31.0-37.0); MCV 82.4 fL (80.0-100.0); MEAN PLATELET VOLUME 9.3 fL (7.4-10.4); MONOCYTES 9.7 % (2-11); NEUTROPHILS 53.8 % (40-80); PLATELET COUNT 464 10x3/uL (130-400); RBC 5.17 10x6/uL (4.20-6.10); WBC 11.3 10x3/uL (4.8-10.8)
[2018-11-06 10:51] LABS: PROTEIN - BODY FLUID 4.1 G/DL
[2018-11-06 12:28] LABS: ERYTHROCYTE SEDIMENTATION RATE 22 mm/hr (0-15)
[2018-11-06 14:04] LABS: MACROPHAGES BF 12 %; NEUT - BF 10 %
== END | disposition home or self-care (01) ==
LOC: D.RAD 08:49
PROVIDERS: Clinical Nurse Specialist Family Health; Orthopaedic Surgery
DX: Z96.652 Presence of left artificial knee joint (principal)

== ENCOUNTER → 2018-12-04 14:09 | Outpatient (CLI) | payer MEDICAID ==
[2018-10-02 00:06] VITALS: BMI 56.6
[2018-12-04 15:34] LABS: C-REACTIVE PROTEIN 6.1 mg/dL (0.0-0.9)
[2018-12-04 16:26] LABS: URIC ACID 5.4 mg/dL (2.6-7.2)
[2018-12-04 17:16] LABS: ERYTHROCYTE SEDIMENTATION RATE 40 mm/hr (0-15)
[2018-12-05 15:20] LABS: ANA REFLEX - DIRECT Negative (Negative)
== END | disposition home or self-care (01) ==
LOC: D.MRI 14:09
PROVIDERS: ATTEND Clinical Nurse Specialist Family Health
DX: M54.16 Radiculopathy, lumbar region (principal)

== ENCOUNTER 2019-01-19 18:39 | Emergency (ER) | payer MEDICAID ==
[~2019-01-19] VITALS: Ht 167.6 cm; Wt 159.1 kg
[2019-01-19 18:42] VITALS: Ht 167.6 cm; Wt 159.1 kg
[2019-01-19 21:50] VITALS: BP 132/95
== END 2019-01-19 21:50 | disposition home or self-care (01) ==
LOC: D.ER 18:39
DX: M25.562 Pain in left knee (principal)

== ENCOUNTER → 2019-01-23 16:38 | Outpatient (CLI) | payer MEDICAID ==
[2019-01-19 18:42] VITALS: BMI 56.6
[2019-01-23 18:30] LABS: BASOPHILS 0.2 % (0-2); EOSINOPHILS 2.2 % (0-7); HEMATOCRIT 43.8 % (42.0-54.0); HEMOGLOBIN 14.2 g/dL (13.5-17.5); IMMATURE GRANULOCYTES 0.3 % (0-5); LYMPHOCYTES 38.2 % (15-50); MCH 27.6 pg (26.0-34.0); MCHC 32.4 g/dL (31.0-37.0); MCV 85.2 fL (80.0-100.0); MEAN PLATELET VOLUME 9.7 fL (7.4-10.4); MONOCYTES 9.4 % (2-11); NEUTROPHILS 49.7 % (40-80); PLATELET COUNT 526 10x3/uL (130-400); RBC 5.14 10x6/uL (4.20-6.10); RDW 15.1 % (11.5-14.5); WBC 10.5 10x3/uL (4.8-10.8)
[2019-01-23 18:40] LABS: CALC OSMOLALITY 272 mosm/kg (275-300); CALCIUM 8.8 mg/dL (8.5-10.1); CARBON DIOXIDE 25.3 mmol/L (21.0-32.0); CHLORIDE - SERUM 101 mmol/L (98-107); CREATININE - SERUM 0.9 mg/dL (0.6-1.3); POTASSIUM - SERUM 4.7 mmol/L (3.5-5.1); SODIUM 138 mmol/L (136-145); UREA NITROGEN 15 mg/dL (7-18); eGFR NON AFRICAN AMERICAN > 90 mL/min (90-120)
[2019-01-23 18:46] LABS: GLUCOSE 31 mg/dL (74-106)
[2019-01-23 20:22] LABS: ERYTHROCYTE SEDIMENTATION RATE 55 mm/hr (0-15)
== END | disposition home or self-care (01) ==
LOC: D.LABREF 16:38
PROVIDERS: ATTEND Orthopaedic Surgery
DX: M25.562 Pain in left knee (principal)

== ENCOUNTER → 2019-01-25 08:40 | Outpatient (CLI) | payer MEDICAID ==
[2019-01-19 18:42] VITALS: BMI 56.6
== END | disposition home or self-care (01) ==
LOC: D.LABREF 08:40
PROVIDERS: ATTEND Orthopaedic Surgery
DX: M25.562 Pain in left knee (principal)

== ENCOUNTER → 2019-02-05 08:36 | Outpatient (CLI) | payer MEDICAID ==
[2019-01-19 18:42] VITALS: BMI 56.6
--- NOTE | ~2019-02-05 | HEMODYNAMI ---
PATIENT:RAKEL ROJAS MEDICAL RECORD: [id number] : 84 LOCATION:[facility] ADMISSION DATE: 02/05/19 Generatedon:02/05/20199:24 Patient name: RAKEL RJOAS Patient #: [id number] SSN: DO B: 1980 Date of study: 02/05/2019 Page: Of Hemodynamic Procedure Report Patient Data Patient Demographics Procedure consent was obtained First Name: RAKEL Gender: Male Last Name: BOB : 1980 Middle Initial: EDWARD Age: 38 year(s) Patient #: [id number] Race: Unknown Additional ID: [id number] Contact details Address: [address] [place] [address] State: [place] City: [place] Zip code: [address] Past Medical History Allergies: No known allergies Admission Admission Data Admission Date: 02/05/2019 Admission Time: 8:36 Procedure Procedure Types Cath Procedure Peripheral Cath Diagnostic Procedure Miscellaneous Aspiration/Injection (Joint) Procedure Description Procedure Date Procedure Date: 02/05/2019 Procedure Start Time: 9:17 Procedure Staff Name Function Kirk Pope MD Performing Physician Balaji Parrish RT Monitor Elva Morton RN Nurse Procedure Data Cath Procedure Fluoroscopy Diagnostic fluoroscopy Total fluoroscopy Time: time: 0.03 min 0.03 min Diagnostic fluoroscopy Total fluoroscopy dose: 0.1 dose: 0.1 mGy mGy Hemodynamics Rest Pre Cath Intra NCS Post Cath Procedure Log Time Note 9:09:03 Balaji Parrish RT (R) (CV) sent for patient. Start room use. 9:10:05 Patient received from Outpatients to IR Alert and oriented. Tansferred to table in Supine position. 9:10:08 Correct patient and procedure confirmed by team. 9:10:10 Signed procedure consent form obtained from patient. 9:10:12 Full Disclosure recording started 9:10:14 9:10:15 Pre-procedure instructions explained to patient. 9:10:16 Pre-op teaching completed and patient verbalized understanding. 9:10:26 Patient allergic to No known allergies 9:10:32 Is the patient allergic to Iodine/contrast media? No. 9:10:36 Is patient on blood thinner?No 9:10:52 Left Knee was prepped with betadine and draped in sterile fashion. 9:16:13 Physician arrived 9:16:13 --------ALL STOP TIME OUT------ 9:16:15 Final Timeout: patient, procedure, and site verified with staff and physician. All members of the team are in agreement. 9:16:34 Sedation plan: Local Anesthetic Medication:Lidocaine 9:17:01 Procedure started. 9:17:15 Local anesthetic to Left Knee with Lidocaine 1% by Kirk Pope MD.INITIAL ACCESS ONLY 9:17:23 SAFE-T PLUS MYELOGRAM TRAY opened to sterile field. 9:17:24 SPINAL NEEDLE 20GX3.5 IN ([id number]) opened to sterile field. 9:23:38 Procedure ended.(Physican Out) 9:23:55 Fluoroscopy time 00.03 minutes. 9:23:59 Fluoroscopy dose: 0.1 mGy 9:23:59 Flurop Dose total: 0.1 9:24:21 bandaide applied pt sent home site stable Device Usage Item Name Manufacture Quantity Catalog Hospital Part Current Minimal Lot# / Number Charge Number Stock Stock Serial# Code SAFE-T CareFusion 1 [id number] PLUS MYELOGRAM TRAY SPINAL B. Patiño 1 [id number] NEEDLE 20GX3.5 IN ([id number]) Signature Audit [place] Stage Time Signature Unsigned Intra-Procedure 02/05/2019 Balaji 9:24:43 AM Shivani RT (R) (CV) Signatures Monitor : Balaji Signature : Shivani RT Date : Time : [facility] [address] [place] [address]
[2019-02-05 12:14] LABS: PROTEIN - BODY FLUID 3.5 G/DL
[2019-02-05 14:47] LABS: MACROPHAGES BF 21 %; NEUT - BF 10 %
== END | disposition home or self-care (01) ==
LOC: D.SP 08:36 → D.RAD 11:00
PROVIDERS: Orthopaedic Surgery; ATTEND Clinical Nurse Specialist Family Health
DX: T84.84XA Pain due to internal orthopedic prosthetic devices, implants and grafts, initial encounter (principal); M25.562 Pain in left knee; Z01.812 Encounter for preprocedural laboratory examination

== ENCOUNTER → 2019-02-13 17:44 | Outpatient (CLI) | payer MEDICAID ==
[2019-01-19 18:42] VITALS: BMI 56.6
[2019-02-13 19:06] LABS: CALC OSMOLALITY 274 mosm/kg (275-300); CALCIUM 9.4 mg/dL (8.5-10.1); CHLORIDE - SERUM 98 mmol/L (98-107); CREATININE - SERUM 0.9 mg/dL (0.6-1.3); POTASSIUM - SERUM 4.4 mmol/L (3.5-5.1); SODIUM 139 mmol/L (136-145); UREA NITROGEN 10 mg/dL (7-18); eGFR NON AFRICAN AMERICAN > 90 mL/min (90-120)
[2019-02-13 19:20] LABS: GLUCOSE 56 mg/dL (74-106)
== END | disposition home or self-care (01) ==
LOC: D.LABREF 17:44
PROVIDERS: ATTEND Clinical Nurse Specialist Family Health
DX: M25.562 Pain in left knee (principal); E16.2 Hypoglycemia, unspecified

== ENCOUNTER 2019-02-21 19:54 | Emergency (ER) | payer MEDICAID ==
[~2019-02-21] VITALS: Ht 167.6 cm; Wt 159.1 kg
[2019-02-21 19:56] VITALS: Ht 167.6 cm; Wt 159.1 kg
[2019-02-21 21:30] VITALS: BP 150/82
== END 2019-02-21 21:31 | disposition home or self-care (01) ==
LOC: D.ER 19:54
DX: M25.562 Pain in left knee (principal)

== ENCOUNTER → 2019-12-05 09:09 | Outpatient (CLI) | payer BC ==
[2019-02-21 19:56] VITALS: BMI 56.6
== END | disposition home or self-care (01) ==
LOC: D.NM 09:09
PROVIDERS: ATTEND Clinical Nurse Specialist Family Health
DX: Z96.652 Presence of left artificial knee joint (principal)

== ENCOUNTER → 2020-02-03 09:53 | Outpatient (CLI) | payer MEDICAID ==
[2019-02-21 19:56] VITALS: BMI 56.6
--- NOTE | ~2020-02-03 | HEMODYNAMI ---
PATIENT:RAKEL ROJAS MEDICAL RECORD: [id number] : 84 LOCATION:[facility] ADMISSION DATE: 02/03/20 Generatedon:02/03/202012:13 Patient name: RAKEL ROJAS Patient #: [id number] SSN: DO B: 1980 Date of study: 02/03/2020 Page: Of Hemodynamic Procedure Report Patient Data Patient Demographics Procedure consent was obtained First Name: RAKEL Gender: Male Last Name: BOB : 1980 Middle Initial: EDWARD Age: 39 year(s) Patient #: [id number] Race: Unknown Additional ID: [id number] Contact details Address: [address] [place] [address] State: [place] City: [place] Zip code: [address] Past Medical History Allergies: No known allergies Admission Admission Data Admission Date: 02/03/2020 Admission Time: 9:53 Procedure Procedure Types Cath Procedure Peripheral Cath Diagnostic Procedure Miscellaneous Procedure Description Procedure Date Procedure Date: 02/03/2020 Procedure Start Time: 11:59 Procedure Staff Name Function Ethan Gasca MD Performing Physician Balaji Parrish RT Monitor Procedure Data Cath Procedure Fluoroscopy Diagnostic fluoroscopy Total fluoroscopy Time: 0.3 time: 0.3 min min Diagnostic fluoroscopy Total fluoroscopy dose: 3 dose: 3 mGy mGy Hemodynamics Rest Pre Cath Intra NCS Post Cath Procedure Log Time Note 11:44:58 Balaji Parrish RT (R) (CV) sent for patient. Start room use. 11:45:01 Time tracking: Regular hours (M-F 7:00 - 5:00) 11:45:07 Patient received from Other to IR Alert and oriented. Tansferred to table in Supine position. 11:45:10 Signed procedure consent form obtained from patient. 11:45:11 Correct patient and procedure confirmed by team. 11:45:12 - 11:45:14 Pre-procedure instructions explained to patient. 11:45:14 Pre-op teaching completed and patient verbalized understanding. 11:45:22 Patient allergic to No known allergies 11:45:27 Is the patient allergic to Iodine/contrast media? No. 11:45:29 Is patient on blood thinner?Yes 11:45:31 ACC The patient was administered the following blood thiners within the last 24 hours: ACCAspirin 11:46:01 Left Knee was prepped with betadine and draped in sterile fashion. 11:57:51 Physician arrived 11:57:53 --------ALL STOP TIME OUT------ 11:57:58 Final Timeout: patient, procedure, and site verified with staff and physician. All members of the team are in agreement. 11:58:21 left knee site verified with team 11:58:28 Sedation plan: Local Anesthetic Medication:Lidocaine 11:59:29 Procedure started. 11:59:30 Full Disclosure recording started 11:59:38 SAFE-T PLUS MYELOGRAM TRAY opened to sterile field. 12:11:06 Procedure ended.(Physican Out) 12:11:43 Fluoroscopy time 00.30 minutes. 12:11:46 Fluoroscopy dose: 3 mGy 12:11:46 Flurop Dose total: 3 12:12:09 site stable bandaide applied fluid sent to lab and pt sent home Device Usage Item Name Manufacture Quantity Catalog Hospital Part Current Minimal Lot# / Number Charge Number Stock Stock Serial# Code SAFE-T CareFusion 1 [id number] PLUS MYELOGRAM TRAY Signature Audit [place] Stage Time Signature Unsigned Intra-Procedure 02/03/2020 Balaji 12:13:04 [facility] [address] [place] [address]
[2020-02-03 10:26] LABS: BASOPHILS 0.2 % (0-2); EOSINOPHILS 1.9 % (0-7); HEMATOCRIT 42.3 % (42.0-54.0); HEMOGLOBIN 13.7 g/dL (13.5-17.5); IMMATURE GRANULOCYTES 0.2 % (0-5); LYMPHOCYTES 33.5 % (15-50); MCH 28.9 pg (26.0-34.0); MCHC 32.4 g/dL (31.0-37.0); MCV 89.2 fL (80.0-100.0); MEAN PLATELET VOLUME 8.8 fL (7.4-10.4); MONOCYTES 8.3 % (2-11); NEUTROPHILS 55.9 % (40-80); PLATELET COUNT 475 10x3/uL (130-400); RBC 4.74 10x6/uL (4.20-6.10); RDW 13.4 % (11.5-14.5); WBC 12.4 10x3/uL (4.8-10.8)
[2020-02-03 12:57] LABS: ERYTHROCYTE SEDIMENTATION RATE 27 mm/hr (0-15)
[2020-02-03 18:48] LABS: EOS BF 1 %; MACROPHAGES BF 1 %; NEUT - BF 14 %
== END | disposition home or self-care (01) ==
LOC: D.LAB 01-24 09:15 → D.RAD 01-24 09:30 → D.LAB 09:53
PROVIDERS: Orthopaedic Surgery; ATTEND Clinical Nurse Specialist Family Health
DX: M25.562 Pain in left knee (principal)